=== PATIENT | male | born 1950 | race Caucasian/White ===

== ENCOUNTER 2017-08-14 17:02 | Emergency (ER) | payer OTHER ==
[~2017-08-14] VITALS: Ht 180.3 cm; Wt 65.0 kg
[~2017-08-14 17:02] MED LIST: ALBU17IN INH; AMLO5TAB2 PO; LISI-538 PO; OMEP40CA2 PO; PROP80CA PO
[2017-08-14] MEDS ORDERED: LORA0.5T11 (17:14)
[2017-08-14] MEDS ORDERED: POTA1TAB23 (17:14)
[2017-08-14] MEDS ORDERED: METO1TAB32 (17:14)
[2017-08-14] MEDS ORDERED: BREO1INH (17:14)
[2017-08-14] MEDS ORDERED: methylPREDNISolone INJ 125 MG/2 ML VIAL (J2930) IV ONE (18:30)
[2017-08-14] MEDS ORDERED: diphenhydrAMINE INJ 50MG/ML VIAL (J1200) IV ONE (18:30)
[2017-08-14] MEDS ORDERED: PRED20TA PO (19:18)
[2017-08-14 19:28] VITALS: BP 137/71
== END 2017-08-14 19:27 | disposition home or self-care (01) ==
LOC: M ED 17:02
DX: T78.3XXA Angioneurotic edema, initial encounter (principal); I10 Essential (primary) hypertension; J45.909 Unspecified asthma, uncomplicated; F17.210 Nicotine dependence, cigarettes, uncomplicated; Z79.899 Other long term (current) drug therapy
CPT/HCPCS: 96374; 96375; 99283; J1200; J2930

== ENCOUNTER 2018-07-27 12:24 | Emergency (ER) | payer OTHER ==
[2018-07-27] MEDS: MORPHINE 4 MG/ML 1ML VIAL/SYRINGE (J2270) IV (13:14)
[2018-07-27] MEDS: LORazepam 2 MG/ML VIAL (J2060) IV (13:17)
[2018-07-27 13:54] LABS: ANION GAP 8 MEQ/L (8-16); BLOOD UREA NITROGEN 16 MG/DL (7-18); CALCIUM LEVEL 8.8 MG/DL (8.8-10.2); CARBON DIOXIDE LEVEL 27 MEQ/L (21-32); CHLORIDE LEVEL 104 MEQ/L (98-107); CREATININE FOR GFR 0.76 MG/DL (0.70-1.30); GLOMERULAR FILTRATION RATE > 60.0 (>49); GLUCOSE, FASTING 102 MG/DL (70-100); POTASSIUM SERUM 3.5 MEQ/L (3.5-5.1); SODIUM LEVEL 139 MEQ/L (136-145)
== END 2018-07-27 14:13 | disposition home or self-care (01) ==
LOC: M ED 12:24
DX: M62.830 Muscle spasm of back (principal); J44.9 Chronic obstructive pulmonary disease, unspecified; K21.9 Gastro-esophageal reflux disease without esophagitis; Z79.899 Other long term (current) drug therapy; Z88.8 Allergy status to other drugs, medicaments and biological substances; F17.210 Nicotine dependence, cigarettes, uncomplicated
CPT/HCPCS: J2270

== ENCOUNTER 2019-02-13 12:17 | Emergency (ER) | payer OTHER, MEDICARE ==
[~2019-02-13] VITALS: Ht 177.8 cm; Wt 64.8 kg
[~2019-02-13 12:17] MED LIST changes: -AMLO5TAB2 PO; +AMLO5TAB6 PO; +BREO1INH; +CYCL10TA PO; +LORA0.5T11; +METO1TAB32; +POTA1TAB23; +PRED20TA PO
[2019-02-13] MEDS ORDERED: BREO1INH PO (12:24)
[2019-02-13] MEDS ORDERED: LEVA1TAB2 PO (13:25)
[2019-02-13] MEDS ORDERED: NAPR-837 PO (13:25)
--- NOTE | 2019-02-13 13:32 | REP ---
CHEST, TWO VIEWS: Two views of the chest are performed and compared to a prior study of 03/19/2014. There is infiltrate/atelectasis in the right middle lobe. Chronic pleural and parenchymal fibrotic changes seen in the left lung base. There is mild biapical pleural thickening. Heart is normal in size. There is calcification of the thoracic aorta. The mediastinal silhouette is unchanged. There are mild degenerative changes of the spine. Minor anterior compression deformity is noted of T12. This is of indeterminate age. Electronically Signed by Bc Steinberg MD 02/17/2019 09:45 A
[2019-02-13 13:38] VITALS: BP 172/83
== END 2019-02-13 13:39 | disposition home or self-care (01) ==
LOC: M ED 12:17
DX: J18.1 Lobar pneumonia, unspecified organism (principal); I10 Essential (primary) hypertension; K21.9 Gastro-esophageal reflux disease without esophagitis; Z79.899 Other long term (current) drug therapy; Z88.8 Allergy status to other drugs, medicaments and biological substances

== ENCOUNTER → 2019-02-28 | Outpatient (CLI) | payer OTHER, MEDICARE ==
[~2019-02-28] MED LIST changes: +BREO1INH PO; +LEVA1TAB2 PO; +NAPR-837 PO
--- NOTE | 2019-02-28 15:37 | REP ---
PA and lateral chest: Comparison is 02/13/2018. There is a persisting right middle lobe infiltrate, unchanged. The lateral aspect of the left hemidiaphragm is elevated. This is unchanged. This may be from pleural adhesion. Electronically Signed by Bc Richmond MD 02/28/2019 03:29 P
== END ==
LOC: M WUC 15:16
PROVIDERS: ATTEND Internal Medicine
DX: J18.9 Pneumonia, unspecified organism (principal)

== ENCOUNTER → 2019-03-20 | Outpatient (CLI) | payer OTHER, MEDICARE ==
[~2019-03-20] MED LIST changes: -LORA0.5T11; +LORA0.5T5; -METO1TAB32; +METO1TAB32 PO; -OMEP40CA2 PO; +OMEP40CA97 PO; +PROAAER10 INH; +TREL1AER PO
--- NOTE | 2019-03-21 06:50 | REP ---
Chest x-ray: Two views. History: Pneumonia. Comparison chest x-ray: February 28, 2019. Findings: There is chronic elevation of the left hemidiaphragm and pleuroparenchymal fibrosis at the lateral pleural angle. This is unchanged from prior films dating back to 2014. However, recent radiographs have shown increased density overlying the heart on the lateral film consistent with right middle lobe or lingular atelectasis. This persists today and it is felt to merit further evaluation. Recommend chest CT study. There is mild wedging of one of the lower thoracic vertebrae which is new since 2014 but unchanged from most recent prior studies. No new infiltrate is seen. Lungs overall are hyperinflated. Heart is not enlarged. The aorta is calcific and tortuous. Impression: Persistent consolidation overlying the heart on the lateral film consistent with right middle lobe or lingular atelectasis and/or infiltrate. Recommend chest CT study. With IV contrast if possible. Electronically Signed by Abiodun Wong MD 03/21/2019 11:42 A
== END ==
LOC: M WUC 13:38
PROVIDERS: ATTEND Internal Medicine
DX: J98.11 Atelectasis (principal)

== ENCOUNTER → 2019-04-01 | Outpatient (CLI) | payer OTHER, MEDICARE ==
[~2019-04-01] MED LIST changes: +ISOVUE-370 76% 100ML VIAL (Q9967) As Ordered ONE; +LORA0.5T11; -LORA0.5T5; +OMEP40CA2 PO; -OMEP40CA97 PO
--- NOTE | 2019-04-01 10:04 | REP ---
CT of the chest with IV contrast: Comparisons are PA and lateral plain film study dated 02/13/2019 and 03/20/2019. There is partial collapse of the right middle lobe. The appearance is unchanged from the comparison plain film studies suggesting this is subacute. Consideration might be given to bronchoscopy to evaluate for bronchial occlusion. The remainder the lung leonardo are clear and unchanged. There are no pleural effusions. There is no mediastinal, hilar or axillary lymph node enlargement. Cardiac size is normal. There is no pericardial effusion. The thoracic aorta is unremarkable. The visualized upper abdominal contents are unremarkable. Impression: Partial collapse of the right middle lobe. This is similar appearance to the comparison plain film studies. Bronchoscopy might be considered to evaluate for bronchial occlusion. Electronically Signed by Bc Richmond MD 04/01/2019 09:55 A
== END ==
LOC: M RAD 09:12
PROVIDERS: ATTEND Internal Medicine
DX: J98.19 Other pulmonary collapse (principal)
CPT/HCPCS: 71260; Q9967

== ENCOUNTER → 2019-05-08 | Outpatient (CLI) | payer OTHER, MEDICARE ==
[~2019-05-08] MED LIST changes: -ISOVUE-370 76% 100ML VIAL (Q9967) As Ordered ONE; -OMEP40CA2 PO; +OMEP40CA97 PO
[2019-05-08 17:02] LABS: ALBUMIN 3.9 GM/DL (3.2-5.2); ALT/SGPT 43 U/L (12-78); BILIRUBIN,TOTAL 0.9 MG/DL (0.2-1.0); BLOOD UREA NITROGEN 16 MG/DL (7-18); CALCIUM LEVEL 9.2 MG/DL (8.8-10.2); CARBON DIOXIDE LEVEL 29 MEQ/L (21-32); CHLORIDE LEVEL 102 MEQ/L (98-107); CREATININE FOR GFR 0.93 MG/DL (0.70-1.30); GLOMERULAR FILTRATION RATE > 60.0 (>49); GLUCOSE, FASTING 178 MG/DL (70-100); POTASSIUM SERUM 3.7 MEQ/L (3.5-5.1); SODIUM LEVEL 141 MEQ/L (136-145); TOTAL PROTEIN 7.3 GM/DL (6.4-8.2)
[2019-05-08 17:31] LABS: BASO # 0.1 10^3/uL (0.0-0.2); BASO % 0.9 % (0.0-1.0); EOS # 0.1 10^3/uL (0.0-0.50); EOS % 2.1 % (0.0-3.0); HEMATOCRIT 38.9 % (42.0-52.0); LYMPH % 15.1 % (24.0-44.0); MEAN CORPUSCULAR HEMOGLOBIN 25.6 pg (27.0-33.0); MEAN CORPUSCULAR HGB CONC 33.4 g/dl (32.0-36.5); MEAN CORPUSCULAR VOLUME 76.6 fl (80.0-96.0); MONO # 0.7 10^3/uL (0.0-0.8); MONO % 10.9 % (0.0-5.0); NEUTROPHILS # 4.7 10^3/uL (1.8-7.7); NEUTROPHILS % 70.6 % (36.0-66.0); PLATELET COUNT, AUTOMATED 185 10^3/uL (150-450); RED BLOOD COUNT 5.08 10^6/uL (4.30-6.10); WHITE BLOOD COUNT 6.7 10^3/uL (4.0-10.0)
[2019-05-08 17:55] LABS: INR 1.08; PROTHROMBIN TIME 13.7 SECONDS (11.8-14.0)
== END ==
LOC: M WUC 11:56
PROVIDERS: ATTEND Internal Medicine Pulmonary Disease
DX: J44.9 Chronic obstructive pulmonary disease, unspecified (principal)

== ENCOUNTER 2019-05-13 07:08 | Day surgery (SDC) | payer OTHER, MEDICARE ==
[~2019-05-13] VITALS: Ht 175.3 cm; Wt 65.8 kg
[~2019-05-13 07:08] MED LIST changes: +LIDOCAINE 1% MDV 20ML VIAL SQ PRN; +LR 1,000 ML IV ONE; +OMEP40CA2 PO; -OMEP40CA97 PO
[2019-05-13] MEDS ORDERED: CETACAINE SPRAY 5GM As Ordered ONE (07:11)
[2019-05-13] MEDS ORDERED: THROMBIN SOLN 5,000 UNITS VIAL As Ordered ONE (07:11)
[2019-05-13] MEDS ORDERED: LIDOCAINE VISCOUS 2% SOLN 15ML UDC As Ordered ONE (07:11)
[2019-05-13] MEDS ORDERED: LIDOCAINE 1% SDV INJ 30 ML VIAL As Ordered ONE (07:11)
[2019-05-13] MEDS ORDERED: EPINEPHrine 1MG/10ML SYRINGE 1.5IN As Ordered ONE (07:11)
[2019-05-13] MEDS ORDERED: ROCURONIUM BROMIDE 50 MG/5 ML VIAL As Ordered ONE (07:15)
[2019-05-13] MEDS ORDERED: LIDOCAINE 2% INJ 100 MG/5 ML SDV (FOR ANES.) As Ordered ONE ×2 (07:15→07:16)
[2019-05-13] MEDS ORDERED: PROPOFOL 200 MG/20 ML VIAL As Ordered ONE (07:15)
[2019-05-13] MEDS ORDERED: SUGAMMADEX SODIUM 500 MG/5 ML VIAL (BRIDION) As Ordered ONE (07:16)
[2019-05-13] MEDS ORDERED: dexameTHASONE 4 MG/ML 1ML VIAL (J1100) As Ordered ONE (07:16)
[2019-05-13] MEDS ORDERED: MIDAZOLAM INJ 2 MG/2 ML VIAL (J2250) As Ordered ONE (07:16)
[2019-05-13] MEDS ORDERED: ONDANSETRON 4MG/2ML VIAL (J2405) As Ordered ONE (07:16)
[2019-05-13] MEDS ORDERED: fentaNYL 100 MCG/2 ML INJECTION (J3010) As Ordered ONE (07:16)
[2019-05-13] MEDS ORDERED: ACETAMINOPHEN 1000MG 100ML IV BTL (OFIRMEV) (J0131 PER 10MG) As Ordered ONE (07:16)
[2019-05-13] MEDS ORDERED: ALBUTEROL SULFATE 2.5 MG/0.5 ML INH NEB SOLN INH ONE (08:00)
[2019-05-13] MEDS ORDERED: ALBUTEROL SULFATE 2.5 MG/0.5 ML INH NEB SOLN As Ordered ONE (08:09)
[2019-05-13] MEDS ORDERED: ONDANSETRON 4MG/2ML VIAL (J2405) IV PRN (10:45)
[2019-05-13] MEDS ORDERED: fentaNYL 100 MCG/2 ML INJECTION (J3010) IV PRN (10:45)
[2019-05-13] MEDS ORDERED: PERCOCET 5MG/325MG TAB PO PRN (10:45)
[2019-05-13] MEDS ORDERED: LR 1,000 ML IV SCH (10:45)
[2019-05-13 11:00] VITALS: BP 119/56
--- NOTE | 2019-05-13 11:01 | REP ---
PORTABLE CHEST: AP portable view of the chest is performed and compared to a prior study of 03/20/2019. There is persistent consolidative opacity in the right middle lobe not significantly changed. There is no pneumothorax. There is chronic pleural and parenchymal scarring in the left base, which is unchanged. There is mild biapical pleural and parenchymal scarring. The heart is not enlarged. There is mild calcification of the thoracic aorta. Mediastinal silhouette is unchanged. IMPRESSION: Persistent right middle lobe consolidation. No pneumothorax. Electronically Signed by Bc Steinberg MD 05/13/2019 03:33 P
[2019-05-13 11:55] LABS: APPEARANCE CLOTTED (CLEAR); SOURCE RIGHT MIDDLE LOBE
[2019-05-13 12:04] LABS: MONOCYTES/MACROPHAGES, BAL 1 %
[2019-05-13 12:06] LABS: SOURCE RIGHT LOWER LOBE
[2019-05-13 12:07] LABS: APPEARANCE CLOTTED (CLEAR); COLOR PINK (COLORLESS)
[2019-05-13 12:35] LABS: MONOCYTES/MACROPHAGES, BAL 10 %
--- NOTE | 2019-05-13 13:43 | ROOR ---
Patient Name: Edinson Elizabeth Procedure Date: 05/13/2019 7:16 AM Date of : 1950 Admit Type: Outpatient Age: 69 Note Status: Finalized Attending MD: Jemima Ortiz MD Procedure: Bronchoscopy Indications: Atelectasis of the right middle lobe, Abnormal CT scan of chest Providers: Jemima Ortiz MD (Doctor) Referring MD: 1. No Referring Physician 1. No Referring Physician, Admin. (Referring MD) Requesting Physician: Medicines: General Anesthesia, Cetacaine topical Complications: No immediate complications. Estimated blood loss: Minimal Procedure: Pre-Anesthesia Assessment: - Prior to the procedure, a History and Physical was performed, and patient medications and allergies were reviewed. The patient's tolerance of previous anesthesia was also reviewed. The risks and benefits of the procedure and the sedation options and risks were discussed with the patient. All questions were answered, and informed consent was obtained. Prior Anticoagulants: The patient has taken no previous anticoagulant or antiplatelet agents. ASA Grade Assessment: II - A patient with mild systemic disease. After reviewing the risks and benefits, the patient was deemed in satisfactory condition to undergo the procedure. The Bronchoscope was introduced through the mouth, via the endotracheal tube (the patient was intubated for the procedure) and advanced to the tracheobronchial tree of both lungs. The procedure was accomplished without difficulty. The patient tolerated the procedure well. Findings: The visualized portion of the trachea is of normal caliber. The pradeep is sharp. The tracheobronchial tree was examined to at least the first subsegmental level. Bronchial anatomy was normal; there are no endobronchial lesions. Bronchial mucosa with scattered anthracotic pigmentation and some pitting and webbing. Right Lung Abnormalities: Mucus, plugging the airway, was found in the right middle lobe. The mucus was stephenson/brown, tenacious and thick. The underlying mucosa is friable. BAL was performed in the RML medial segment (B5) of the lung and sent for cell count, bacterial culture, viral smears & culture, and fungal & AFB analysis and cytology. The return was cloudy and mucoid. Mucous plugs were present in the return fluid. In the right lower lobe there were thick white/yellow mucous secretions. BAL was performed in the RLL anterior basal segment (B8) of the lung and sent for cell count, bacterial culture, viral smears & culture, and fungal & AFB analysis. The return was blood-tinged, cloudy and mucoid. Mucous plugs were present in the return fluid. In left lung there were scant white mucoid secretions. Impression: - Atelectasis of the right middle lobe - Abnormal CT scan of chest - A mucous plug was found in the right middle lobe. - Bronchoalveolar lavage was performed. - Bronchoalveolar lavage was performed. Recommendation: - Follow up with bronchoscopist as previously scheduled. Attending Participation: I personally performed the entire procedure. Jemima Ortiz MD 05/13/2019 1:43:14 PM Number of Addenda: 0 Note Initiated On: 05/13/2019 7:16 AM
== END 2019-05-13 11:13 | disposition home or self-care (01) ==
LOC: M SDC 07:08
PROVIDERS: ATTEND Internal Medicine Pulmonary Disease
DX: J98.11 Atelectasis (principal); J44.9 Chronic obstructive pulmonary disease, unspecified; I10 Essential (primary) hypertension; K76.0 Fatty (change of) liver, not elsewhere classified; F17.218 Nicotine dependence, cigarettes, with other nicotine-induced disorders; Z79.899 Other long term (current) drug therapy
CPT/HCPCS: 31624; 71045; 87070; 87102; 87116; 87205; 87206; 88108; 88313; 89051; J0131; J1100; J2250; J2405; J3010

== ENCOUNTER → 2019-05-28 | Outpatient (CLI) | payer OTHER, MEDICARE ==
[~2019-05-28] MED LIST changes: -LIDOCAINE 1% MDV 20ML VIAL SQ PRN; -LR 1,000 ML IV ONE
--- NOTE | 2019-05-28 09:45 | REP ---
CT of the chest without IV contrast: Comparison is 04/01/2019. On the comparison study. There is partial collapse of the right middle lobe. On the study today. This has resolved and is no longer present. The lung leonardo otherwise unchanged. There is no mediastinal or axillary adenopathy as previously. The study is insensitive for hilar adenopathy in the absence of IV contrast. Thoracic aorta is unremarkable except for occasional calcified atheroma. This is unchanged. The cardiac size is normal. There is upper abdomen there is a small hypodensity posteriorly in the hepatic right lobe, unchanged, likely a cyst. The visualized upper abdominal contents are otherwise unremarkable. Impression: The partial collapse of the right middle lobe has resolved and is no longer present. There is no other interval change. Electronically Signed by Bc Richmond MD 05/28/2019 09:37 A
== END ==
LOC: M RAD 09:15
PROVIDERS: ATTEND Internal Medicine Pulmonary Disease
DX: J98.11 Atelectasis (principal)

== ENCOUNTER 2019-10-09 11:53 | Emergency (ER) | payer OTHER, MEDICARE ==
[~2019-10-09 11:53] MED LIST changes: -LORA0.5T11; +LORA0.5T5; -OMEP40CA2 PO; +OMEP40CA97 PO
[2019-10-09] MEDS ORDERED: BREO1INH INH (12:15)
[2019-10-09 12:37] LABS: BASO # 0.1 10^3/uL (0.0-0.2); BASO % 1.4 % (0.0-1.0); EOS # 0.2 10^3/uL (0.0-0.5); EOS % 3.5 % (0.0-3.0); HEMATOCRIT 36.9 % (42.0-52.0); HEMOGLOBIN 12.3 g/dl (13.5-17.5); LYMPH % 17.5 % (24.0-44.0); MEAN CORPUSCULAR HEMOGLOBIN 24.8 pg (27.0-33.0); MEAN CORPUSCULAR HGB CONC 33.3 g/dl (32.0-36.5); MEAN CORPUSCULAR VOLUME 74.5 fl (80.0-96.0); MONO # 0.7 10^3/uL (0.0-0.8); MONO % 12.8 % (0.0-5.0); NEUTROPHILS # 3.7 10^3/uL (1.5-8.5); NEUTROPHILS % 64.1 % (36.0-66.0); PLATELET COUNT, AUTOMATED 156 10^3/uL (150-450); RED BLOOD COUNT 4.95 10^6/uL (4.30-6.10); WHITE BLOOD COUNT 5.7 10^3/uL (4.0-10.0)
[2019-10-09] MEDS ORDERED: MECLIZINE 25 MG TABLET PO ONE (13:15)
--- NOTE | 2019-10-09 13:32 | ECGEPIP ---
[facility] - ED Test Date: 2019-10-09 Pat Name: NARESH GARCIA Department: Room: - Gender: Male Accountant Cost: RITO : 1950 Requested By: EDUARDO Smith Order Number: [id number] Reading MD: Marisol Lockwood Measurements Intervals [place] Rate: 70 P: 71 PA: 186 QRS: 6 QRSD: 93 T: 72 QT: 425 QTc: 461 Interpretive Statements SINUS RHYTHM WITH OCCASIONAL VENTRICULAR PREMATURE COMPLEXES NSTTW abnormalities DELAYED R PROGRESSION NO PRIOR Electronically Signed on 10-09-2019 13:32:24 EST by Marisol Lockwood
--- NOTE | 2019-10-09 13:44 | REPVR ---
PROCEDURE INFORMATION: Exam: CT Head Without Contrast Exam date and time: 10/09/2019 1:11 PM Age: 69 years old Clinical indication: Dizziness; Additional info: Dizzy TECHNIQUE: Imaging protocol: Computed tomography of the head without contrast. Radiation optimization: All CT scans at this facility use at least one of these dose optimization techniques: automated exposure control; mA and/or kV adjustment per patient size (includes targeted exams where dose is matched to clinical indication); or iterative reconstruction. COMPARISON: No relevant prior studies available. FINDINGS: Brain: There is no acute intracranial hemorrhage, cerebral edema, or midline shift. Minimal chronic microvascular ischemic changes are seen in the periventricular white matter. Age-related cerebral and cerebellar volume loss is present. Ventricles: No hydrocephalus. Bones/joints: No acute fracture. Sinuses: There is no acute sinusitis. Mastoid air cells: The mastoid air cells are clear. Orbits: The included orbital structures are unremarkable. Soft tissues: Unremarkable. Vasculature: Atherosclerotic calcifications are seen involving the cavernous carotid arteries. IMPRESSION: No acute intracranial abnormality. Electronically signed by: Tom Lu On 10/09/2019 13:45:26 PM
[2019-10-09 14:07] LABS: CK-MB VALUE MASS 1.5 NG/ML (<3.6); CPK CREATINE PHOSPHOKINASE 51 U/L (39-308); MAGNESIUM LEVEL 1.4 MG/DL (1.8-2.4); MB/CK RELATIVE INDEX 2.94 (< OR =4); TROPONIN I < 0.02 NG/ML (< 0.10)
[2019-10-09] MEDS ORDERED: MECL1TAB31 PO (14:28)
[2019-10-09 14:36] VITALS: BP 145/72
--- NOTE | 2019-10-09 15:04 | REP ---
CHEST, SINGLE VIEW: Single view of the chest is performed and compared to prior study of 05/13/2019. There is no acute infiltrate. There is mild elevation of the left hemidiaphragm. There is mild bibasilar fibrotic scarring which is stable. Heart is normal in size and there is calcification of the thoracic aorta. The mediastinal silhouette is unchanged. IMPRESSION: Stable chronic findings without evidence of acute infiltrate or pulmonary edema. Electronically Signed by Bc Steinberg MD 10/09/2019 03:40 P
== END 2019-10-09 14:52 | disposition home or self-care (01) ==
LOC: EDBD 11:53 → EDSEX 11:53 → M ED 11:53
DX: R42 Dizziness and giddiness (principal); H83.09 Labyrinthitis, unspecified ear; I10 Essential (primary) hypertension; J44.9 Chronic obstructive pulmonary disease, unspecified; Z79.899 Other long term (current) drug therapy; Z88.8 Allergy status to other drugs, medicaments and biological substances; F17.210 Nicotine dependence, cigarettes, uncomplicated

== ENCOUNTER → 2020-05-30 | Outpatient (CLI) | payer OTHER, MEDICARE ==
[~2020-05-30] MED LIST changes: +AMLO1TAB24 PO; -AMLO5TAB6 PO; +BREO1INH INH; +CYCL-707 PO; -CYCL10TA PO; +MECL1TAB31 PO
--- NOTE | 2020-06-09 07:42 | REP ---
CT CHEST WITHOUT CONTRAST: LOW DOSE SCREENING EXAM HISTORY: Nicotine dependency. COMPARISON: Chest CT study 05/28/2019 and 04/01/2019. There is also a comparison chest CT study from 04/06/2008. CT FINDINGS: There is a subtle area of ground glass opacity in the left upper lobe projecting on page 32 of 116 in series 201 of todays study. This measures approximately 12 mm in greatest diameter. It is unchanged from the 04/01/2019 prior study. This may be an area of scarring. It was not present on the 2007 study. There is no evidence of pulmonary mass lesion. No endobronchial lesion is seen. The right middle lobe collapse which was seen on the 04/01/2019 study is not apparent. The left hemidiaphragm is slightly elevated, and there is some pleuroparenchymal scarring at the left base laterally. These findings are unchanged. There is some old mild deformity along the inferior costal margin and left lateral ribcage. There is left and right coronary artery vascular calcification. No new or solid pulmonary nodule is appreciated. IMPRESSION: Lung-RADS category 2 findings. No change from comparison study 05/28/2019. Repeat screening study suggested in one year. Stable 11 mm ground glass opacity left upper lobe. MTDD
== END ==
LOC: M RAD 13:46
PROVIDERS: ATTEND Internal Medicine Pulmonary Disease
DX: R91.8 Other nonspecific abnormal finding of lung field (principal); F17.218 Nicotine dependence, cigarettes, with other nicotine-induced disorders

== ENCOUNTER → 2021-05-30 | Outpatient (CLI) | payer MEDICARE, OTHER ==
[~2021-05-30] MED LIST changes: -LISI-538 PO; +LISI20TA33 PO; +OMEP40CA4 PO; -OMEP40CA97 PO
--- NOTE | 2021-05-30 08:50 | REP ---
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 COMPARISON: 02/17/2008. TECHNIQUE: Real-time sonographic evaluation of ABDOMEN PERFORMED, WITH DUPLEX DOPPLER EVALUATION OF PORTAL VASCULATURE. FINDINGS: The gallbladder demonstrates no evidence of intraluminal sludge or calculi, wall thickening or pericholecystic fluid. There is no intrahepatic or extrahepatic biliary dilatation, common bile duct measures 4 mm in maximum diameter. The liver demonstrates diffuse heterogeneous increased echotexture compatible with diffuse fibrofatty infiltration. The pancreas demonstrates homogeneous echotexture with no gross mass, the pancreas is not optimally visualized due to overlying bowel gas.. Spleen is normal in size with no intrinsic abnormality, measuring 10.1 cm in length. There is no evidence of hydronephrosis, cyst, mass, or calculus in either kidney. The right kidney measures 10.8 x 5.9 x 4.5 cm. Left renal dimensions are 11.7 x 5.8 x 5.7 cm. The abdominal aorta is normal in caliber with no aneurysm. Maximum AP diameter proximally 3.3 cm, mid aspect 2.1 cm, distally 1.7 cm. No free fluid is seen. The main portal vein measures 14 mm in diameter. The splenic vein and portal veins demonstrate normal direction of flow, with normal flow velocities and waveforms. There is no portal vein thrombosis. Hepatic veins are patent with no thrombus. Patent main hepatic artery demonstrates peak systolic velocity of 115.3 centimeters/second. Portal veins demonstrate normal velocity, main portal vein velocity 24.2 centimeter/second. There is loss of phasicity in the hepatic veins. IMPRESSION: Diffuse fibrofatty infiltration of the liver with no gross mass. Portal vasculature demonstrates normal direction of flow with no thrombosis. No evidence of hepatic vein thrombosis. Main portal vein upper limits of normal in diameter with normal velocity. <Electronically signed by Bc Steinberg > 05/30/21 [id number]
== END ==
LOC: M RAD 07:40
PROVIDERS: ATTEND Internal Medicine Gastroenterology
DX: K70.30 Alcoholic cirrhosis of liver without ascites (principal)

== ENCOUNTER → 2021-06-02 | Outpatient (CLI) | payer OTHER, MEDICARE ==
--- NOTE | 2021-06-02 14:53 | REP ---
INDICATION: NICOTINE DEPENDENCE. COMPARISON: 05/30/2020 as well as other prior exams. TECHNIQUE: Low dose screening CT chest performed without the use of intravenous contrast. FINDINGS: Lungs: There is scattered stable appearing bilateral interstitial fibrosis and areas of pleural thickening. There is a new ill-defined partially consolidative opacity in the anteromedial left lower lobe on images 70 through 78. Maximum dimensions are 1.0 x 2.6 cm. This most likely represents a small area of new atelectasis or infiltrate. Otherwise no new parenchymal mass is seen. Heart: Not enlarged. Thoracic aorta: No aneurysm. Visualized osseous structures: There are degenerative changes of the spine. IMPRESSION: Lung rads category 3, probably benign. New band of ill-defined partially consolidative opacity in the anteromedial left lower lobe as discussed above. This most likely represents a new area of atelectasis or infiltrate. Recommend follow-up CT in 3-6 months. <Electronically signed by Bc Steinberg > 06/02/21 [id number]
== END ==
LOC: M RAD 14:08
PROVIDERS: ATTEND Internal Medicine Pulmonary Disease
DX: F17.218 Nicotine dependence, cigarettes, with other nicotine-induced disorders (principal)

== ENCOUNTER → 2021-10-06 | Outpatient (CLI) | payer OTHER, MEDICARE ==
[~2021-10-06] MED LIST changes: +NALT50TA4 PO; +POTA1TAB14 PO
== END ==
LOC: M LABSMTC 11:10
PROVIDERS: ATTEND Anesthesiology
DX: Z01.812 Encounter for preprocedural laboratory examination (principal); Z20.822 Contact with and (suspected) exposure to COVID-19

== ENCOUNTER → 2021-10-06 | Outpatient (CLI) | payer OTHER, MEDICARE ==
[2021-10-06 14:11] LABS: BASO # 0.1 10^3/uL (0.0-0.2); BASO % 1.1 % (0.0-1.0); EOS # 0.1 10^3/uL (0.0-0.5); EOS % 1.2 % (0.0-3.0); HEMOGLOBIN 13.2 g/dl (13.5-17.5); LYMPH # 1.1 10^3/uL (1.5-5.0); LYMPH % 13.5 % (24.0-44.0); MEAN CORPUSCULAR HEMOGLOBIN 25.9 pg (27.0-33.0); MEAN CORPUSCULAR HGB CONC 33.8 g/dl (32.0-36.5); MEAN CORPUSCULAR VOLUME 76.6 fl (80.0-96.0); MONO % 12.1 % (2.0-8.0); NEUTROPHILS # 5.9 10^3/uL (1.5-8.5); NEUTROPHILS % 71.1 % (36.0-66.0); PLATELET COUNT, AUTOMATED 232 10^3/uL (150-450); RED BLOOD COUNT 5.09 10^6/uL (4.30-6.10); WHITE BLOOD COUNT 8.4 10^3/uL (4.0-10.0)
[2021-10-06 14:23] LABS: INR 1.04
[2021-10-06 14:24] LABS: PARTIAL THROMBOPLASTIN TIME 44.7 SECONDS (25.9-37.0)
[2021-10-06 14:34] LABS: ALBUMIN 3.8 GM/DL (3.2-5.2); ALT/SGPT 30 U/L (12-78); BILIRUBIN,TOTAL 1.4 MG/DL (0.2-1.0); BLOOD UREA NITROGEN 9 MG/DL (7-18); CALCIUM LEVEL 9.8 MG/DL (8.8-10.2); CARBON DIOXIDE LEVEL 29 MEQ/L (21-32); CHLORIDE LEVEL 102 MEQ/L (98-107); CREATININE FOR GFR 0.64 MG/DL (0.70-1.30); GLOMERULAR FILTRATION RATE > 60.0 (>42); GLUCOSE, FASTING 89 MG/DL (70-100); POTASSIUM SERUM 3.4 MEQ/L (3.5-5.1); SODIUM LEVEL 141 MEQ/L (136-145); TOTAL PROTEIN 7.8 GM/DL (6.4-8.2)
== END ==
LOC: M PLALAB 11:47
PROVIDERS: ATTEND Internal Medicine Pulmonary Disease
DX: K70.9 Alcoholic liver disease, unspecified (principal)

== ENCOUNTER 2021-10-11 07:33 | Day surgery (SDC) | payer MEDICARE, OTHER ==
[~2021-10-11] VITALS: Ht 177.8 cm; Wt 62.1 kg
[~2021-10-11 07:33] MED LIST changes: +ALBUTEROL SULFATE 2.5 MG/0.5 ML INH NEB SOLN INH ONE; +LIDOCAINE 2% 100MG/5ML SDV (FOR ANES.) As Ordered ONE; +LIDOCAINE 4% INJ 5ML AMP INH ONE; +LR 1,000 ML IV ONE; +MIDAZOLAM INJ 2MG/2ML VIAL (J2250 PER 1MG) As Ordered ONE; +ROCURONIUM BROMIDE 50 MG/5 ML VIAL As Ordered ONE; +fentaNYL 100 MCG/2 ML INJECTION As Ordered ONE; +propofoL 200 MG/20 ML VIAL As Ordered ONE
[2021-10-11] MEDS ORDERED: EPINEPHrine 1MG/ML INJ 30ML MD-VIAL As Ordered ONE (09:13)
[2021-10-11] MEDS ORDERED: CETACAINE SPRAY 5GM As Ordered ONE (09:13)
[2021-10-11] MEDS ORDERED: EPINEPHrine 1MG/10ML SYRINGE 1.5IN As Ordered ONE (09:16)
[2021-10-11] MEDS ORDERED: dexameTHASONE 4 MG/ML 1ML VIAL (J1100 PER 1MG) As Ordered ONE (10:06)
[2021-10-11] MEDS ORDERED: SUGAMMADEX SODIUM 500 MG/5 ML VIAL (BRIDION) As Ordered ONE (10:06)
[2021-10-11] MEDS ORDERED: ONDANSETRON 4MG/2ML VIAL As Ordered ONE (10:06)
[2021-10-11] MEDS ORDERED: KETOROLAC 60MG 2ML VIAL As Ordered ONE (10:06)
[2021-10-11] MEDS ORDERED: ONDANSETRON 4MG/2ML VIAL IV PRN (10:50)
[2021-10-11] MEDS ORDERED: HYDROMORPHONE HCL 0.5 MG/ 0.5 ML SYRINGE (J1170 PER 1) IV PRN (10:50)
[2021-10-11] MEDS ORDERED: LR 1,000 ML IV SCH (10:50)
[2021-10-11] MEDS ORDERED: fentaNYL 100 MCG/2 ML INJECTION IV PRN (10:50)
[2021-10-11] MEDS ORDERED: oxyCODONE 5MG TAB PO PRN (10:50)
[2021-10-11 11:50] VITALS: BP 119/66
== END 2021-10-11 11:57 | disposition home or self-care (01) ==
LOC: M SDC 07:33
PROVIDERS: ATTEND Internal Medicine Pulmonary Disease
DX: R91.8 Other nonspecific abnormal finding of lung field (principal); I10 Essential (primary) hypertension; K76.0 Fatty (change of) liver, not elsewhere classified; M12.9 Arthropathy, unspecified; H44.9 Unspecified disorder of globe; F17.210 Nicotine dependence, cigarettes, uncomplicated; Z79.899 Other long term (current) drug therapy; Z88.8 Allergy status to other drugs, medicaments and biological substances
CPT/HCPCS: 31624; 31627; 31654; 71045; 87070; 87102; 87116; 87205; 87206; 88108; 88305; 88313; J1100; J1885; J2250; J2405; J3010

== ENCOUNTER → 2022-06-11 | Outpatient (CLI) | payer OTHER, MEDICARE ==
[~2022-06-11] MED LIST changes: -ALBUTEROL SULFATE 2.5 MG/0.5 ML INH NEB SOLN INH ONE; -LIDOCAINE 2% 100MG/5ML SDV (FOR ANES.) As Ordered ONE; -LIDOCAINE 4% INJ 5ML AMP INH ONE; -LR 1,000 ML IV ONE; -MIDAZOLAM INJ 2MG/2ML VIAL (J2250 PER 1MG) As Ordered ONE; -ROCURONIUM BROMIDE 50 MG/5 ML VIAL As Ordered ONE; -fentaNYL 100 MCG/2 ML INJECTION As Ordered ONE; -propofoL 200 MG/20 ML VIAL As Ordered ONE
== END ==
LOC: M RAD 15:31
PROVIDERS: ATTEND Internal Medicine Pulmonary Disease
DX: R91.8 Other nonspecific abnormal finding of lung field (principal)

== ENCOUNTER 2022-09-18 16:02 | Emergency (ER) | payer MEDICARE, OTHER ==
[~2022-09-18] VITALS: Ht 188 cm; Wt 90.9 kg
[~2022-09-18 16:02] MED LIST changes: -ALBU2.5V10 INH; -ALBU8.5H INH; -AMLO1TAB25 PO; -FOLI1TAB11 PO; -LEVO1TAB39 PO; -METO1TAB7 PO; -OMEP1CAP73 PO; -PRED50TA PO
[2022-09-18 16:08] VITALS: BP 120/90
[2022-09-18] MEDS ORDERED: NS 500 ML IV ONE (20:10)
[2022-09-18 20:38] LABS: BASO # 0.2 10^3/uL (0.0-0.2); BASO % 1.4 % (0.0-1.0); EOS # 1.3 10^3/uL (0.0-0.5); EOS % 10.9 % (0.0-3.0); HEMATOCRIT 33.3 % (42.0-52.0); HEMOGLOBIN 11.2 g/dl (13.5-17.5); LYMPH # 1.1 10^3/uL (1.5-5.0); LYMPH % 9.6 % (24.0-44.0); MEAN CORPUSCULAR HEMOGLOBIN 25.5 pg (27.0-33.0); MEAN CORPUSCULAR HGB CONC 33.6 g/dl (32.0-36.5); MEAN CORPUSCULAR VOLUME 75.9 fl (80.0-96.0); MONO # 1.1 10^3/uL (0.0-0.8); MONO % 9.4 % (2.0-8.0); NEUTROPHILS # 7.8 10^3/uL (1.5-8.5); NEUTROPHILS % 67.7 % (36.0-66.0); PLATELET COUNT, AUTOMATED 261 10^3/uL (150-450); RED BLOOD COUNT 4.39 10^6/uL (4.30-6.10); WHITE BLOOD COUNT 11.5 10^3/uL (4.0-10.0)
[2022-09-18] MEDS ORDERED: ISOVUE-370 76% 100ML VIAL As Ordered ONE (20:45)
[2022-09-18 20:50] LABS: PARTIAL THROMBOPLASTIN TIME 43.1 SECONDS (24.8-34.2)
[2022-09-18 20:53] LABS: INR 1.08; PROTHROMBIN TIME 14.2 SECONDS (12.5-14.5)
[2022-09-18 20:54] LABS: LIPASE 23 U/L (12-53)
[2022-09-18 20:56] LABS: BILIRUBIN,DIRECT 0.4 MG/DL (<0.4)
[2022-09-18 20:57] LABS: ALKALINE PHOSPHATASE 93 U/L (46-116); ALT/SGPT 17 U/L (7.0-40); AST/SGOT 23 U/L (<34); BILIRUBIN,TOTAL 0.9 MG/DL (0.3-1.2); TOTAL PROTEIN 6.6 G/DL (5.7-8.2)
[2022-09-18 21:02] LABS: RSV AMPLIFICATION NEGATIVE (NEGATIVE)
[2022-09-18 21:10] LABS: CK-MB VALUE MASS < 1.0 NG/ML (<3.6)
[2022-09-18 21:12] LABS: CPK CREATINE PHOSPHOKINASE 25 U/L (46-171)
[2022-09-21] MEDS ORDERED: ALBU2.5V10 INH (10:00)
[2022-10-04] MEDS ORDERED: FOLI1TAB11 PO (15:44)
[2022-10-29] MEDS ORDERED: LEVO1TAB39 PO (15:45)
[2022-10-29] MEDS ORDERED: PRED50TA PO (15:47)
== END 2022-09-19 01:05 | disposition home or self-care (01) ==
LOC: M ED 18:42
DX: R91.8 Other nonspecific abnormal finding of lung field (principal); R04.2 Hemoptysis; M25.78 Osteophyte, vertebrae; J44.9 Chronic obstructive pulmonary disease, unspecified; J45.909 Unspecified asthma, uncomplicated; I10 Essential (primary) hypertension; E78.5 Hyperlipidemia, unspecified; E87.6 Hypokalemia; K76.0 Fatty (change of) liver, not elsewhere classified; D64.9 Anemia, unspecified; Z88.8 Allergy status to other drugs, medicaments and biological substances; Z79.899 Other long term (current) drug therapy; Z87.891 Personal history of nicotine dependence; Z79.51 Long term (current) use of inhaled steroids
CPT/HCPCS: 36415; 71275; 80047; 80076; 82550; 82553; 83605; 83690; 84484; 85025; 85610; 85730; 86850; 86900; 86901; 87040; 87070; 87205; 87631; 87880; 88160; 93005; 99284; Q9967

== ENCOUNTER → 2022-09-18 | Outpatient (REF) | payer MEDICARE, OTHER ==
[~2022-09-18] MED LIST changes: +ALBU2.5V10 INH; +ALBU8.5H INH; +AMLO1TAB25 PO; +FOLI1TAB11 PO; +LEVO1TAB39 PO; +METO1TAB7 PO; +OMEP1CAP73 PO; +PRED50TA PO; +TREL1AER INH; -TREL1AER PO
== END ==
LOC: M LAB REF 17:25
PROVIDERS: ATTEND Internal Medicine Pulmonary Disease
DX: J44.9 Chronic obstructive pulmonary disease, unspecified (principal)

== ENCOUNTER → 2022-09-22 | Outpatient (CLI) | payer MEDICARE, OTHER ==
[~2022-09-22] MED LIST changes: +ALBU2.5V10 INH; +ALBU8.5H INH; +AMLO1TAB25 PO; +FOLI1TAB11 PO; +LEVO1TAB39 PO; +METO1TAB7 PO; +OMEP1CAP73 PO; +PRED50TA PO
[2022-09-22 15:19] LABS: BLOOD UREA NITROGEN 10 MG/DL (9-23); CREATININE FOR GFR 0.64 MG/DL (0.70-1.30); GLOMERULAR FILTRATION RATE > 60.0 (>42)
== END ==
LOC: M LAB 14:02
PROVIDERS: ATTEND Internal Medicine Pulmonary Disease
DX: J44.9 Chronic obstructive pulmonary disease, unspecified (principal)

== ENCOUNTER → 2022-09-23 | Outpatient (CLI) | payer MEDICARE, OTHER | LOC: M LABSMTC 09:11 | PROVIDERS: ATTEND Anesthesiology | DX: Z01.818 Encounter for other preprocedural examination (principal); Z11.52 Encounter for screening for COVID-19 ==

== ENCOUNTER 2022-09-26 09:28 | Day surgery (SDC) | payer MEDICARE, OTHER ==
[~2022-09-26] VITALS: Ht 177.8 cm; Wt 61.7 kg
[~2022-09-26 09:28] MED LIST changes: -ALBU8.5H INH; +ALBUTEROL SULFATE 2.5MG/0.5ML INH NEB SOLN INH ONE; -AMLO1TAB25 PO; +CETACAINE SPRAY 5GM As Ordered ONE; -FOLI1TAB11 PO; -LEVO1TAB39 PO; +LIDOCAINE PRES-FREE 2% 10ML AMP INH ONE; -METO1TAB7 PO; -OMEP1CAP73 PO; -PRED50TA PO
[2022-09-26] MEDS ORDERED: LR 1,000 ML IV SCH ×2 (09:55→13:10)
[2022-09-26] MEDS ORDERED: propofoL 200 MG/20 ML VIAL As Ordered ONE (10:11)
[2022-09-26] MEDS ORDERED: MIDAZOLAM INJ 2MG/2ML VIAL As Ordered ONE (10:12)
[2022-09-26] MEDS ORDERED: LIDOCAINE 2% 100MG/5ML SDV (FOR ANES.) As Ordered ONE (10:12)
[2022-09-26] MEDS ORDERED: ONDANSETRON 4MG 2ML VIAL As Ordered ONE (10:12)
[2022-09-26] MEDS ORDERED: fentaNYL 100 MCG/2 ML INJECTION As Ordered ONE (10:12)
[2022-09-26] MEDS ORDERED: ROCURONIUM BROMIDE 50MG/5ML VIAL As Ordered ONE ×2 (10:12→12:37)
[2022-09-26] MEDS ORDERED: EPINEPHrine 1MG/10ML SYRINGE 1.5IN As Ordered ONE (11:26)
[2022-09-26] MEDS ORDERED: ACETAMINOPHEN 1000MG 100ML IV BAG As Ordered ONE (12:04)
[2022-09-26] MEDS ORDERED: SUGAMMADEX SODIUM 500 MG/5 ML VIAL (BRIDION) As Ordered ONE (12:15)
[2022-09-26] MEDS ORDERED: ePHEDrine SULFATE 25 MG/5 ML(5MG/ML) SYRINGE As Ordered ONE (12:25)
[2022-09-26] MEDS ORDERED: fentaNYL 100 MCG/2 ML INJECTION IV PRN (13:10)
[2022-09-26] MEDS ORDERED: oxyCODONE 5MG TAB PO PRN (13:10)
[2022-09-26] MEDS ORDERED: ONDANSETRON 4MG 2ML VIAL IV PRN (13:10)
[2022-09-26 14:40] VITALS: BP 110/57
[2022-10-04] MEDS ORDERED: FOLI1TAB11 PO (15:44)
[2022-10-29] MEDS ORDERED: LEVO1TAB39 PO (15:45)
[2022-10-29] MEDS ORDERED: PRED50TA PO (15:47)
== END 2022-09-26 14:45 | disposition home or self-care (01) ==
LOC: M SDC 09:28
PROVIDERS: ATTEND Internal Medicine Pulmonary Disease
DX: C34.32 Malignant neoplasm of lower lobe, left bronchus or lung (principal); I10 Essential (primary) hypertension; K76.0 Fatty (change of) liver, not elsewhere classified; K21.9 Gastro-esophageal reflux disease without esophagitis; J44.9 Chronic obstructive pulmonary disease, unspecified; M19.90 Unspecified osteoarthritis, unspecified site; Z88.8 Allergy status to other drugs, medicaments and biological substances; Z79.899 Other long term (current) drug therapy; Z79.51 Long term (current) use of inhaled steroids
CPT/HCPCS: 31623; 31624; 31627; 31628; 31629; 31654; 71045; 76000; 88104; 88108; 88173; 88305; 88313; J0131; J0171; J1100; J2250; J2405; J3010; S2900

== ENCOUNTER → 2022-10-04 | Outpatient (CLI) | payer MEDICARE, OTHER ==
[~2022-10-04] MED LIST changes: -ALBUTEROL SULFATE 2.5MG/0.5ML INH NEB SOLN INH ONE; -CETACAINE SPRAY 5GM As Ordered ONE; +FOLI1TAB11 PO; -LIDOCAINE PRES-FREE 2% 10ML AMP INH ONE; -TREL1AER INH; +TREL1AER PO
== END ==
LOC: M ONCR 14:22
PROVIDERS: ATTEND General Practice
DX: C34.32 Malignant neoplasm of lower lobe, left bronchus or lung (principal); F17.218 Nicotine dependence, cigarettes, with other nicotine-induced disorders; I10 Essential (primary) hypertension; J44.9 Chronic obstructive pulmonary disease, unspecified; K21.9 Gastro-esophageal reflux disease without esophagitis; M19.90 Unspecified osteoarthritis, unspecified site; Z72.89 Other problems related to lifestyle; Z79.51 Long term (current) use of inhaled steroids; Z79.899 Other long term (current) drug therapy; Z80.3 Family history of malignant neoplasm of breast; Z88.8 Allergy status to other drugs, medicaments and biological substances; Z90.2 Acquired absence of lung [part of]
CPT/HCPCS: 99406; G0463

== ENCOUNTER → 2022-10-11 | Outpatient (CLI) | payer MEDICARE, OTHER | LOC: M CARPUL 09:54 | PROVIDERS: ATTEND Internal Medicine Pulmonary Disease | DX: C34.30 Malignant neoplasm of lower lobe, unspecified bronchus or lung (principal) ==

== ENCOUNTER → 2022-10-25 | Outpatient (CLI) | payer OTHER, MEDICARE ==
[~2022-10-25] MED LIST changes: +PROHANCE 279.3MG/ML 15ML VIAL As Ordered ONE
== END ==
LOC: M RAD 13:01
PROVIDERS: ATTEND General Practice
DX: C34.90 Malignant neoplasm of unspecified part of unspecified bronchus or lung (principal)

== ENCOUNTER 2022-11-05 09:58 | Inpatient (IN) | payer MEDICARE, OTHER ==
[~2022-11-05] VITALS: Ht 177.8 cm; Wt 60.7 kg
[2022-11-05] VITALS (14 sets, daily range): BP systolic 82–98; BP diastolic 51–57; O2SAT 84–88
[~2022-11-05 09:58] MED LIST changes: +LEVO1TAB39 PO; +PRED50TA PO; -PROHANCE 279.3MG/ML 15ML VIAL As Ordered ONE; +TREL1AER INH; -TREL1AER PO
[2022-11-05] MEDS ORDERED: ALBU8.5H INH (10:19)
[2022-11-05] MEDS: IPRATROPIUM 0.5MG/ALBUTEROL 2.5MG INH SOL UD 3ML (DUONEB) NEB SCH ×2 (11:11→11:12)
[2022-11-05 11:26] LABS: HEMATOCRIT 26.2 % (42.0-52.0); HEMOGLOBIN 8.9 g/dl (13.5-17.5); MEAN CORPUSCULAR HEMOGLOBIN 25.1 pg (27.0-33.0); MEAN CORPUSCULAR VOLUME 73.8 fl (80.0-96.0); PLATELET COUNT, AUTOMATED 316 10^3/uL (150-450); RED BLOOD COUNT 3.55 10^6/uL (4.30-6.10)
[2022-11-05 11:31] LABS: WHITE BLOOD COUNT 34.9 10^3/uL (4.0-10.0)
[2022-11-05] MEDS ORDERED: ONDANSETRON 4MG 2ML VIAL IV ONE (11:40)
[2022-11-05] MEDS: fentaNYL 100 MCG/2 ML INJECTION IV PRN ×2 (11:45→12:14)
[2022-11-05 11:50] LABS: BLOOD UREA NITROGEN 22 MG/DL (9-23); CALCIUM LEVEL 8.1 MG/DL (8.3-10.6); CARBON DIOXIDE LEVEL 27 MMOL/L (20-31); CHLORIDE LEVEL 99 MMOL/L (98-107); CREATININE FOR GFR 0.55 MG/DL (0.70-1.30); GLOMERULAR FILTRATION RATE > 60.0 (>42); GLUCOSE, FASTING 107 MG/DL (74-106); POTASSIUM SERUM 3.8 MMOL/L (3.5-5.1); SODIUM LEVEL 134 MMOL/L (136-145)
[2022-11-05 11:56] LABS: ANISOCYTOSIS 1+; EOSINOPHILS 5 % (0-3); LYMPHOCYTES 5 % (16-44); MICROCYTOSIS 1+; MONOCYTES 8 % (0-5); NEUTROPHILS 80 % (28-66); PLATELET ESTIMATE NORMAL (NORMAL)
[2022-11-05 11:57] LABS: HYPOCHROMASIA 1+
[2022-11-05] MEDS ORDERED: FUROSEMIDE 40MG/4ML VIAL IV ONE (12:45)
[2022-11-05] MEDS ORDERED: PERCOCET 5MG/325MG TAB PO ONE (15:40)
[2022-11-05] MEDS ORDERED: AZITHROMYCIN INJ 500 MG, VIAL MATE ADAPTER 1 EACH in D5W 250 ML IV ONE (15:40)
[2022-11-05] MEDS ORDERED: cefTRIAXone SOD 2 GM in D5W MINI-BAG PLUS 50 ML IV ONE (15:40)
[2022-11-05] MEDS ORDERED: MOM 30ML SUSPENSION UDC PO PRN (16:25)
[2022-11-05] MEDS ORDERED: ISOVUE-370 76% 100ML VIAL As Ordered ONE ×2 (16:36→17:11)
[2022-11-05] MEDS ORDERED: FOLIC ACID 1 MG in NS 50 ML IV SCH (17:00)
[2022-11-05] MEDS ORDERED: LORazepam 2 MG TAB PO PRN (17:00)
[2022-11-05] MEDS ORDERED: PRED50TA PO (17:26)
[2022-11-05] MEDS ORDERED: METO1TAB7 PO (17:26)
[2022-11-05] MEDS ORDERED: AMLO1TAB25 PO (17:26)
[2022-11-05] MEDS ORDERED: OMEP1CAP73 PO (17:26)
[2022-11-05 17:28] LABS: ABG BASE EXCESS 3.9 (-2.0-2.0); ABG O2 SATURATION 85.1 % (95.0-99.0); ABG PARTIAL PRESSURE CO2 35.3 mmHg (35.0-45.0); ABG STANDARD HCO3 27.7 MEQ/L (22.0-26.0); ABG TOTAL CO2 28.1 MEQ/L (23.0-31.0); ABG pH (ARTERIAL) 7.502 UNITS (7.350-7.450)
[2022-11-05] MEDS ORDERED: HOME MED LIST COMPLETE! XX SCH (17:30)
[2022-11-05 17:31] LABS: ABG PARTIAL PRESSURE O2 49.3 mmHg (75.0-100.0)
[2022-11-05] MEDS: MORPHINE 4 MG/ML 1ML VIAL IV PRN (17:40)
[2022-11-05 17:48] LABS: INR 1.12; PROTHROMBIN TIME 14.6 SECONDS (12.5-14.5)
[2022-11-05] MEDS ORDERED: NALT50TA4 PO (17:48)
[2022-11-05 17:59] LABS: ALBUMIN 2.2 G/DL (3.2-5.2); BILIRUBIN,DIRECT 0.4 MG/DL (<0.4); BILIRUBIN,TOTAL 0.8 MG/DL (0.3-1.2); TOTAL PROTEIN 5.5 G/DL (5.7-8.2)
[2022-11-05] MEDS: GABAPENTIN 100 MG CAP PO SCH (18:00)
[2022-11-05] MEDS: MULTIVITAMINS/MINERALS THERAP 1 TAB PO SCH (18:00)
[2022-11-05] MEDS: THIAMINE 100 MG TAB PO SCH (18:00)
[2022-11-05] MEDS: FOLIC ACID 1MG TAB PO SCH (18:00)
[2022-11-05] MEDS ORDERED: KETOROLAC 30 MG/ML 1ML VIAL IV ONE (18:35)
[2022-11-05] MEDS ORDERED: NS 1,000 ML IV ONE ×2 (18:35→20:10)
[2022-11-05] MEDS: NICOTINE 21MG/24HR 1 EA TRANSDERMAL TD SCH (18:51)
[2022-11-05] MEDS: LIDOCAINE 5% (LIDODERM) PATCH TD SCH (19:57)
[2022-11-05] MEDS: DOCUSATE SODIUM 100MG CAPSULE PO SCH (20:10)
[2022-11-05] MEDS: IPRATROPIUM 0.5MG/ALBUTEROL 2.5MG INH SOL UD 3ML (DUONEB) INH SCH ×2 (20:12→23:20)
[2022-11-05] MEDS: ADVAIR HFA 115/21MCG INHALER INH SCH (20:13)
[2022-11-05] MEDS ORDERED: VANCOMYCIN HCL 1,000 MG, VIAL MATE ADAPTER 1 EACH in NS 250 ML IV ONE (20:30)
[2022-11-05] MEDS: ACETYLCYSTEINE 20% 4 ML VIAL (200MG/ML) INH SCH (20:44)
[2022-11-05] MEDS ORDERED: FLUTICASONE HFA 220 MCG 12 GM INHALER (FLOVENT) INH SCH (21:00)
[2022-11-05] MEDS: MIDODRINE 2.5 MG TAB PO SCH (21:56)
[2022-11-05] MEDS ORDERED: HYDROCORTISONE 100MG/2ML VIAL IV ONE (22:30)
[2022-11-05] MEDS: PIPERACILLIN/TAZOBACTAM SOD 3.375 GM in D5W MINI-BAG PLUS 50 ML IV SCH (22:53)
[2022-11-05] MEDS: MORPHINE 2 MG/ML 1ML VIAL IV PRN (23:10)
[2022-11-05] MEDS: ACETAMINOPHEN 500 MG TAB PO SCH (23:15)
[2022-11-06] VITALS (11 sets, daily range): BP systolic 90–118; BP diastolic 54–68
[2022-11-06] MEDS: ACETYLCYSTEINE 20% 4 ML VIAL (200MG/ML) INH SCH ×4 (02:00→20:16)
[2022-11-06] MEDS: IPRATROPIUM 0.5MG/ALBUTEROL 2.5MG INH SOL UD 3ML (DUONEB) INH SCH ×5 (03:50→20:16)
[2022-11-06] MEDS: PIPERACILLIN/TAZOBACTAM SOD 3.375 GM in D5W MINI-BAG PLUS 50 ML IV SCH ×4 (04:10→21:48)
[2022-11-06 05:51] LABS: BASO # 0.1 10^3/uL (0.0-0.2); BASO % 0.2 % (0.0-1.0); EOS # 1.5 10^3/uL (0.0-0.5); EOS % 4.5 % (0.0-3.0); HEMATOCRIT 25.2 % (42.0-52.0); HEMOGLOBIN 8.4 g/dl (13.5-17.5); LYMPH # 0.7 10^3/uL (1.5-5.0); LYMPH % 2.3 % (24.0-44.0); MEAN CORPUSCULAR HEMOGLOBIN 24.8 pg (27.0-33.0); MEAN CORPUSCULAR HGB CONC 33.3 g/dl (32.0-36.5); MEAN CORPUSCULAR VOLUME 74.3 fl (80.0-96.0); NEUTROPHILS # 28.1 10^3/uL (1.5-8.5); NEUTROPHILS % 85.9 % (36.0-66.0); PLATELET COUNT, AUTOMATED 300 10^3/uL (150-450); RED BLOOD COUNT 3.39 10^6/uL (4.30-6.10)
[2022-11-06 05:52] LABS: WHITE BLOOD COUNT 32.7 10^3/uL (4.0-10.0)
[2022-11-06 05:54] LABS: MONO # 1.6 10^3/uL (0.0-0.8)
[2022-11-06] MEDS: ACETAMINOPHEN 500 MG TAB PO SCH ×3 (06:00→18:39)
[2022-11-06 06:12] LABS: BLOOD UREA NITROGEN 21 MG/DL (9-23); CARBON DIOXIDE LEVEL 26 MMOL/L (20-31); CHLORIDE LEVEL 102 MMOL/L (98-107); CREATININE FOR GFR 0.62 MG/DL (0.70-1.30); GLOMERULAR FILTRATION RATE > 60.0 (>42); GLUCOSE, FASTING 149 MG/DL (74-106); POTASSIUM SERUM 4.1 MMOL/L (3.5-5.1); SODIUM LEVEL 135 MMOL/L (136-145)
[2022-11-06] MEDS: ADVAIR HFA 115/21MCG INHALER INH SCH ×2 (07:47→20:17)
[2022-11-06] MEDS: TIOTROPIUM INHALER/CAPSULE (SPIRIVA) INH SCH (07:47)
[2022-11-06 08:23] LABS: VANCOMYCIN RANDOM 9.9 UG/ML
[2022-11-06] MEDS: MULTIVITAMINS/MINERALS THERAP 1 TAB PO SCH ×2 (09:00→09:12)
[2022-11-06] MEDS: BARICITINIB 2MG TABLET (OLUMIANT) FOR EUA PO SCH (09:00)
[2022-11-06] MEDS: VANCOMYCIN HCL 1,000 MG, VIAL MATE ADAPTER 1 EACH in D5W 250 ML IV SCH ×2 (09:03→21:02)
[2022-11-06] MEDS: MORPHINE 2 MG/ML 1ML VIAL IV PRN ×3 (09:06→21:47)
[2022-11-06] MEDS: NICOTINE 21MG/24HR 1 EA TRANSDERMAL TD SCH (09:10)
[2022-11-06] MEDS: DOCUSATE SODIUM 100MG CAPSULE PO SCH ×2 (09:10→21:47)
[2022-11-06] MEDS: MIDODRINE 2.5 MG TAB PO SCH ×3 (09:11→16:00)
[2022-11-06] MEDS: GABAPENTIN 100 MG CAP PO SCH (09:11)
[2022-11-06] MEDS: FOLIC ACID 1MG TAB PO SCH (09:11)
[2022-11-06] MEDS: THIAMINE 100 MG TAB PO SCH ×2 (09:12→21:47)
[2022-11-06] MEDS: AZITHROMYCIN 250MG TABLET PO SCH (18:39)
[2022-11-06 19:31] LABS: C REACTIVE PROTEIN QUANTITATIV 15.6 MG/DL (<1.0)
[2022-11-06 19:34] LABS: FERRITIN 1005.4 NG/ML (10.5-307.3)
[2022-11-06] MEDS: ENOXAPARIN 40MG/0.4ML SYRINGE (J1650 PER 10MG) SC SCH (21:47)
[2022-11-06] MEDS: LIDOCAINE 5% (LIDODERM) PATCH TD SCH (21:48)
[2022-11-07] VITALS (23 sets, daily range): BP systolic 98–144; BP diastolic 54–78; O2SAT 82–95
[2022-11-07] MEDS ORDERED: REMDESIVIR 200 MG in NS 250 ML IV ONE ×2
[2022-11-07] MEDS: ACETYLCYSTEINE 20% 4 ML VIAL (200MG/ML) INH SCH ×4 (00:49→19:52)
[2022-11-07] MEDS: IPRATROPIUM 0.5MG/ALBUTEROL 2.5MG INH SOL UD 3ML (DUONEB) INH SCH ×7 (00:49→23:33)
[2022-11-07] MEDS: ACETAMINOPHEN 500 MG TAB PO SCH ×5 (01:58→18:09)
[2022-11-07] MEDS: SODIUM CHLORIDE 0.9% INJ 10 ML SYR IV SCH (02:01)
[2022-11-07] MEDS: PIPERACILLIN/TAZOBACTAM SOD 3.375 GM in D5W MINI-BAG PLUS 50 ML IV SCH ×4 (05:57→22:08)
[2022-11-07 07:01] LABS: BASO # 0.1 10^3/uL (0.0-0.2); BASO % 0.2 % (0.0-1.0); EOS # 0.1 10^3/uL (0.0-0.5); EOS % 0.4 % (0.0-3.0); HEMATOCRIT 25.9 % (42.0-52.0); HEMOGLOBIN 8.6 g/dl (13.5-17.5); LYMPH # 0.5 10^3/uL (1.5-5.0); LYMPH % 1.5 % (24.0-44.0); MEAN CORPUSCULAR HEMOGLOBIN 24.8 pg (27.0-33.0); MEAN CORPUSCULAR HGB CONC 33.2 g/dl (32.0-36.5); MEAN CORPUSCULAR VOLUME 74.6 fl (80.0-96.0); MONO % 3.3 % (2.0-8.0); NEUTROPHILS # 28.2 10^3/uL (1.5-8.5); NEUTROPHILS % 92.8 % (36.0-66.0); PLATELET COUNT, AUTOMATED 241 10^3/uL (150-450); RED BLOOD COUNT 3.47 10^6/uL (4.30-6.10)
[2022-11-07 07:13] LABS: WHITE BLOOD COUNT 30.4 10^3/uL (4.0-10.0)
[2022-11-07 07:44] LABS: ALBUMIN 1.8 G/DL (3.2-5.2); ALKALINE PHOSPHATASE 71 U/L (46-116); ALT/SGPT 20 U/L (7.0-40); AST/SGOT 32 U/L (<34); BILIRUBIN,DIRECT 0.6 MG/DL (<0.4); BLOOD UREA NITROGEN 22 MG/DL (9-23); CALCIUM LEVEL 7.6 MG/DL (8.3-10.6); CARBON DIOXIDE LEVEL 27 MMOL/L (20-31); CHLORIDE LEVEL 104 MMOL/L (98-107); CREATININE FOR GFR 0.59 MG/DL (0.70-1.30); GLOMERULAR FILTRATION RATE > 60.0 (>42); GLUCOSE, FASTING 141 MG/DL (74-106); POTASSIUM SERUM 3.9 MMOL/L (3.5-5.1); SODIUM LEVEL 139 MMOL/L (136-145)
[2022-11-07] MEDS: MIDODRINE 2.5 MG TAB PO SCH ×3 (08:36→16:00)
[2022-11-07] MEDS: THIAMINE 100 MG TAB PO SCH ×2 (08:37→20:14)
[2022-11-07] MEDS: FOLIC ACID 1MG TAB PO SCH (08:37)
[2022-11-07] MEDS: GABAPENTIN 100 MG CAP PO SCH ×2 (08:37→20:13)
[2022-11-07] MEDS: DOCUSATE SODIUM 100MG CAPSULE PO SCH ×2 (08:37→20:13)
[2022-11-07] MEDS: BARICITINIB 2MG TABLET (OLUMIANT) FOR EUA PO SCH ×2 (08:37→09:00)
[2022-11-07] MEDS: MULTIVITAMINS/MINERALS THERAP 1 TAB PO SCH ×2 (08:38→08:56)
[2022-11-07] MEDS: ADVAIR HFA 115/21MCG INHALER INH SCH ×2 (08:42→19:52)
[2022-11-07] MEDS: TIOTROPIUM INHALER/CAPSULE (SPIRIVA) INH SCH (08:42)
[2022-11-07] MEDS: NICOTINE 21MG/24HR 1 EA TRANSDERMAL TD SCH (10:48)
[2022-11-07 12:07] LABS: ABG HCO3 22.4 MEQ/L (22.0-26.0); ABG O2 SATURATION 92.4 % (95.0-99.0); ABG PARTIAL PRESSURE CO2 29.2 mmHg (35.0-45.0); ABG STANDARD HCO3 24.4 MEQ/L (22.0-26.0); ABG TOTAL CO2 23.3 MEQ/L (23.0-31.0); ABG pH (ARTERIAL) 7.502 UNITS (7.350-7.450)
[2022-11-07] MEDS: MORPHINE 4 MG/ML 1ML VIAL IV PRN (16:20)
[2022-11-07] MEDS ORDERED: RIVAROXABAN 10MG TAB (XARELTO) PO SCH (18:00)
[2022-11-07] MEDS: AZITHROMYCIN 250MG TABLET PO SCH (18:09)
[2022-11-07] MEDS: MORPHINE 2 MG/ML 1ML VIAL IV PRN (18:09)
[2022-11-07] MEDS: ENOXAPARIN 40MG/0.4ML SYRINGE (J1650 PER 10MG) SC SCH (20:14)
[2022-11-07] MEDS: LIDOCAINE 5% (LIDODERM) PATCH TD SCH (20:14)
[2022-11-07] MEDS ORDERED: RAMELTEON 8 MG TAB (ROZEREM) PO ONE (23:30)
[2022-11-08] VITALS (26 sets, daily range): BP systolic 101–165; BP diastolic 63–95; O2SAT 86–93
[2022-11-08] MEDS: ACETAMINOPHEN 500 MG TAB PO SCH ×4 (00:10→18:13)
[2022-11-08] MEDS: REMDESIVIR 100 MG in NS 250 ML IV SCH (00:37)
[2022-11-08] MEDS: SODIUM CHLORIDE 0.9% INJ 10 ML SYR IV SCH (00:37)
[2022-11-08] MEDS: IPRATROPIUM 0.5MG/ALBUTEROL 2.5MG INH SOL UD 3ML (DUONEB) INH SCH ×2 (03:16→08:23)
[2022-11-08] MEDS: ACETYLCYSTEINE 20% 4 ML VIAL (200MG/ML) INH SCH ×2 (03:16→08:00)
[2022-11-08 04:20] LABS: ABG BASE EXCESS 0.9 (-2.0-2.0); ABG HCO3 23.6 MEQ/L (22.0-26.0); ABG O2 SATURATION 92.9 % (95.0-99.0); ABG PARTIAL PRESSURE CO2 30.7 mmHg (35.0-45.0); ABG PARTIAL PRESSURE O2 67.4 mmHg (75.0-100.0); ABG STANDARD HCO3 25.2 MEQ/L (22.0-26.0); ABG TOTAL CO2 24.6 MEQ/L (23.0-31.0); ABG pH (ARTERIAL) 7.504 UNITS (7.350-7.450)
[2022-11-08] MEDS: PIPERACILLIN/TAZOBACTAM SOD 3.375 GM in D5W MINI-BAG PLUS 50 ML IV SCH ×4 (05:16→22:13)
[2022-11-08 06:40] LABS: BASO # 0.1 10^3/uL (0.0-0.2); BASO % 0.2 % (0.0-1.0); EOS # 0.1 10^3/uL (0.0-0.5); EOS % 0.3 % (0.0-3.0); HEMATOCRIT 27.6 % (42.0-52.0); HEMOGLOBIN 9.3 g/dl (13.5-17.5); LYMPH # 0.5 10^3/uL (1.5-5.0); LYMPH % 1.5 % (24.0-44.0); MEAN CORPUSCULAR HEMOGLOBIN 25.1 pg (27.0-33.0); MEAN CORPUSCULAR HGB CONC 33.7 g/dl (32.0-36.5); MEAN CORPUSCULAR VOLUME 74.6 fl (80.0-96.0); MONO # 0.8 10^3/uL (0.0-0.8); MONO % 2.2 % (2.0-8.0); NEUTROPHILS % 93.6 % (36.0-66.0); PLATELET COUNT, AUTOMATED 252 10^3/uL (150-450)
[2022-11-08 06:44] LABS: WHITE BLOOD COUNT 35.2 10^3/uL (4.0-10.0)
[2022-11-08 06:51] LABS: ERYTHROCYTE SEDIMENTATION RATE 83 mm/hr (0-20)
[2022-11-08 06:54] LABS: INR 1.22; PROTHROMBIN TIME 15.7 SECONDS (12.5-14.5)
[2022-11-08] MEDS: TIOTROPIUM INHALER/CAPSULE (SPIRIVA) INH SCH (08:00)
[2022-11-08] MEDS: ADVAIR HFA 115/21MCG INHALER INH SCH ×2 (08:00→19:12)
[2022-11-08] MEDS: MIDODRINE 2.5 MG TAB PO SCH ×3 (08:00→16:00)
[2022-11-08 08:57] LABS: LDH LACTATE DEHYDROGENASE 374 U/L (120-246)
[2022-11-08] MEDS: MORPHINE 2 MG/ML 1ML VIAL IV PRN (09:04)
[2022-11-08 09:45] LABS: ALBUMIN 1.9 G/DL (3.2-5.2); ALKALINE PHOSPHATASE 85 U/L (46-116); ALT/SGPT 22 U/L (7.0-40); AST/SGOT 27 U/L (<34); BILIRUBIN,DIRECT 0.6 MG/DL (<0.4); BILIRUBIN,TOTAL 1.3 MG/DL (0.3-1.2); BLOOD UREA NITROGEN 29 MG/DL (9-23); CALCIUM LEVEL 7.7 MG/DL (8.3-10.6); CARBON DIOXIDE LEVEL 26 MMOL/L (20-31); CHLORIDE LEVEL 104 MMOL/L (98-107); CREATININE FOR GFR 0.65 MG/DL (0.70-1.30); FERRITIN 1413.3 NG/ML (10.5-307.3); GLOMERULAR FILTRATION RATE > 60.0 (>42); GLUCOSE, FASTING 137 MG/DL (74-106); POTASSIUM SERUM 4.1 MMOL/L (3.5-5.1); SODIUM LEVEL 139 MMOL/L (136-145)
[2022-11-08] MEDS: NICOTINE 21MG/24HR 1 EA TRANSDERMAL TD SCH (10:12)
[2022-11-08] MEDS: THIAMINE 100 MG TAB PO SCH (10:13)
[2022-11-08] MEDS: METOPROLOL TART 25 MG TABLET PO SCH ×2 (10:13→20:22)
[2022-11-08] MEDS: MIRALAX *UNIT DOSE* 17GM PACKET PO SCH ×3 (10:13→20:24)
[2022-11-08] MEDS: GABAPENTIN 100 MG CAP PO SCH ×2 (10:13→20:20)
[2022-11-08] MEDS: FOLIC ACID 1MG TAB PO SCH (10:14)
[2022-11-08] MEDS: MULTIVITAMINS/MINERALS THERAP 1 TAB PO SCH (10:14)
[2022-11-08] MEDS: SENNA 8.6 MG TAB (SENOKOT) PO SCH ×2 (10:14→20:20)
[2022-11-08] MEDS: DOCUSATE SODIUM 100MG CAPSULE PO SCH ×2 (10:15→20:22)
[2022-11-08] MEDS: BARICITINIB 2MG TABLET (OLUMIANT) FOR EUA PO SCH (10:15)
[2022-11-08 10:27] LABS: TOTAL PROTEIN 5.5 G/DL (5.7-8.2)
[2022-11-08] MEDS: SODIUM CHLORIDE HYPERTONIC 3% 15ML NEB SOL INH SCH ×4 (11:16→23:36)
[2022-11-08] MEDS: ALBUTEROL SULFATE 2.5MG/0.5ML INH NEB SOLN NEB SCH ×4 (11:16→23:35)
[2022-11-08] MEDS: MORPHINE 4 MG/ML 1ML VIAL IV PRN ×2 (12:12→15:31)
[2022-11-08] MEDS: AZITHROMYCIN 250MG TABLET PO SCH (18:12)
[2022-11-08] MEDS: ENOXAPARIN 40MG/0.4ML SYRINGE (J1650 PER 10MG) SC SCH (20:20)
[2022-11-08] MEDS: LIDOCAINE 5% (LIDODERM) PATCH TD SCH (20:23)
[2022-11-09] VITALS (21 sets, daily range): BP systolic 97–166; BP diastolic 62–102
[2022-11-09] MEDS: REMDESIVIR 100 MG in NS 250 ML IV SCH ×2
[2022-11-09] MEDS: ACETAMINOPHEN 500 MG TAB PO SCH ×4 (00:05→18:00)
[2022-11-09] MEDS: SODIUM CHLORIDE 0.9% INJ 10 ML SYR IV SCH (00:06)
[2022-11-09] MEDS: PIPERACILLIN/TAZOBACTAM SOD 3.375 GM in D5W MINI-BAG PLUS 50 ML IV SCH ×4 (03:26→21:49)
[2022-11-09] MEDS: ALBUTEROL SULFATE 2.5MG/0.5ML INH NEB SOLN NEB SCH ×6 (04:00→23:19)
[2022-11-09] MEDS: SODIUM CHLORIDE HYPERTONIC 3% 15ML NEB SOL INH SCH ×6 (04:00→23:19)
[2022-11-09 04:56] LABS: BASO # 0.1 10^3/uL (0.0-0.2); BASO % 0.2 % (0.0-1.0); EOS # 0.2 10^3/uL (0.0-0.5); EOS % 0.6 % (0.0-3.0); HEMATOCRIT 25.5 % (42.0-52.0); HEMOGLOBIN 8.2 g/dl (13.5-17.5); LYMPH # 0.6 10^3/uL (1.5-5.0); LYMPH % 2.1 % (24.0-44.0); MEAN CORPUSCULAR HEMOGLOBIN 24.1 pg (27.0-33.0); MEAN CORPUSCULAR HGB CONC 32.2 g/dl (32.0-36.5); MONO # 1.2 10^3/uL (0.0-0.8); MONO % 4.2 % (2.0-8.0); NEUTROPHILS % 91.7 % (36.0-66.0); PLATELET COUNT, AUTOMATED 225 10^3/uL (150-450); WHITE BLOOD COUNT 28.4 10^3/uL (4.0-10.0)
[2022-11-09 05:41] LABS: ALKALINE PHOSPHATASE 88 U/L (46-116); ALT/SGPT 21 U/L (7.0-40); AST/SGOT 30 U/L (<34); BILIRUBIN,DIRECT 0.6 MG/DL (<0.4); BLOOD UREA NITROGEN 48 MG/DL (9-23); CALCIUM LEVEL 7.7 MG/DL (8.3-10.6); CARBON DIOXIDE LEVEL 27 MMOL/L (20-31); CHLORIDE LEVEL 106 MMOL/L (98-107); CREATININE FOR GFR 0.68 MG/DL (0.70-1.30); GLOMERULAR FILTRATION RATE > 60.0 (>42); GLUCOSE, FASTING 132 MG/DL (74-106); POTASSIUM SERUM 4.2 MMOL/L (3.5-5.1); SODIUM LEVEL 140 MMOL/L (136-145); TOTAL PROTEIN 5.2 G/DL (5.7-8.2)
[2022-11-09] MEDS: ADVAIR HFA 115/21MCG INHALER INH SCH ×2 (07:45→19:25)
[2022-11-09] MEDS: TIOTROPIUM INHALER/CAPSULE (SPIRIVA) INH SCH (08:00)
[2022-11-09] MEDS: MIDODRINE 2.5 MG TAB PO SCH (08:00)
[2022-11-09] MEDS ORDERED: FUROSEMIDE 20MG/2ML VIAL IV ONE (09:00)
[2022-11-09] MEDS: MIRALAX *UNIT DOSE* 17GM PACKET PO SCH ×2 (09:00→20:27)
[2022-11-09] MEDS: SENNA 8.6 MG TAB (SENOKOT) PO SCH ×2 (09:00→20:27)
[2022-11-09] MEDS: FOLIC ACID 1MG TAB PO SCH (09:06)
[2022-11-09] MEDS: BARICITINIB 2MG TABLET (OLUMIANT) FOR EUA PO SCH (09:06)
[2022-11-09] MEDS: MULTIVITAMINS/MINERALS THERAP 1 TAB PO SCH (09:06)
[2022-11-09] MEDS: GABAPENTIN 100 MG CAP PO SCH ×2 (09:06→20:26)
[2022-11-09] MEDS: DOCUSATE SODIUM 100MG CAPSULE PO SCH ×2 (09:06→20:27)
[2022-11-09] MEDS: METOPROLOL TART 25 MG TABLET PO SCH ×2 (09:07→20:27)
[2022-11-09] MEDS: NICOTINE 21MG/24HR 1 EA TRANSDERMAL TD SCH (09:08)
[2022-11-09] MEDS: MORPHINE 2 MG/ML 1ML VIAL IV PRN (12:17)
[2022-11-09 15:08] LABS: BODY FLUID CULTURE Not indicated. (.); LEGIONELLA ANTIGEN URINE Negative (Negative); ORGANISM ID Not indicated. (.); SPECIMEN SOURCE Urine (.); URINE STREP PNEUMONIAE ANTIGEN Negative (Negative)
[2022-11-09] MEDS: MORPHINE 4 MG/ML 1ML VIAL IV PRN ×2 (15:28→20:13)
[2022-11-09] MEDS: LIDOCAINE 5% (LIDODERM) PATCH TD SCH (20:26)
[2022-11-09] MEDS: ENOXAPARIN 40MG/0.4ML SYRINGE (J1650 PER 10MG) SC SCH (20:27)
[2022-11-09] MEDS ORDERED: RAMELTEON 8 MG TAB (ROZEREM) PO ONE (21:45)
[2022-11-10] VITALS (24 sets, daily range): BP systolic 114–174; BP diastolic 60–87
[2022-11-10] MEDS: SODIUM CHLORIDE 0.9% INJ 10 ML SYR IV SCH
[2022-11-10] MEDS: ALBUTEROL SULFATE 2.5MG/0.5ML INH NEB SOLN NEB SCH ×5 (03:15→19:47)
[2022-11-10] MEDS: SODIUM CHLORIDE HYPERTONIC 3% 15ML NEB SOL INH SCH ×5 (03:15→19:47)
[2022-11-10] MEDS: PIPERACILLIN/TAZOBACTAM SOD 3.375 GM in D5W MINI-BAG PLUS 50 ML IV SCH (04:08)
[2022-11-10] MEDS: MORPHINE 4 MG/ML 1ML VIAL IV PRN (04:08)
[2022-11-10 05:03] LABS: BASO # 0.1 10^3/uL (0.0-0.2); BASO % 0.2 % (0.0-1.0); EOS # 0.6 10^3/uL (0.0-0.5); EOS % 1.8 % (0.0-3.0); HEMATOCRIT 23.9 % (42.0-52.0); LYMPH # 0.3 10^3/uL (1.5-5.0); LYMPH % 1.1 % (24.0-44.0); MEAN CORPUSCULAR HGB CONC 33.5 g/dl (32.0-36.5); MEAN CORPUSCULAR VOLUME 74.7 fl (80.0-96.0); MONO % 5.4 % (2.0-8.0); NEUTROPHILS % 89.6 % (36.0-66.0); PLATELET COUNT, AUTOMATED 204 10^3/uL (150-450)
[2022-11-10 05:05] LABS: MONO # 1.7 10^3/uL (0.0-0.8); WHITE BLOOD COUNT 31.2 10^3/uL (4.0-10.0)
[2022-11-10] MEDS: ACETAMINOPHEN 500 MG TAB PO SCH ×5 (05:15→23:36)
[2022-11-10 05:39] LABS: ALBUMIN 2.2 G/DL (3.2-5.2); ALKALINE PHOSPHATASE 101 U/L (46-116); ALT/SGPT 24 U/L (7.0-40); AST/SGOT 39 U/L (<34); BILIRUBIN,DIRECT 0.6 MG/DL (<0.4); BILIRUBIN,TOTAL 1.5 MG/DL (0.3-1.2); BLOOD UREA NITROGEN 42 MG/DL (9-23); CALCIUM LEVEL 7.8 MG/DL (8.3-10.6); CARBON DIOXIDE LEVEL 27 MMOL/L (20-31); CHLORIDE LEVEL 104 MMOL/L (98-107); GLOMERULAR FILTRATION RATE > 60.0 (>42); GLUCOSE, FASTING 116 MG/DL (74-106); POTASSIUM SERUM 4.1 MMOL/L (3.5-5.1); SODIUM LEVEL 139 MMOL/L (136-145); TOTAL PROTEIN 5.5 G/DL (5.7-8.2)
[2022-11-10] MEDS: ADVAIR HFA 115/21MCG INHALER INH SCH ×2 (07:54→19:48)
[2022-11-10] MEDS ORDERED: FUROSEMIDE 40MG/4ML VIAL IV ONE (08:25)
[2022-11-10] MEDS: MULTIVITAMINS/MINERALS THERAP 1 TAB PO SCH (08:50)
[2022-11-10] MEDS: FOLIC ACID 1MG TAB PO SCH (08:50)
[2022-11-10] MEDS: BARICITINIB 2MG TABLET (OLUMIANT) FOR EUA PO SCH (08:50)
[2022-11-10] MEDS: METOPROLOL TART 25 MG TABLET PO SCH ×2 (08:51→20:25)
[2022-11-10] MEDS: GABAPENTIN 100 MG CAP PO SCH ×2 (08:51→20:25)
[2022-11-10] MEDS: NICOTINE 21MG/24HR 1 EA TRANSDERMAL TD SCH (08:52)
[2022-11-10] MEDS: MIRALAX *UNIT DOSE* 17GM PACKET PO SCH ×2 (08:54→20:08)
[2022-11-10] MEDS: SENNA 8.6 MG TAB (SENOKOT) PO SCH ×2 (08:54→20:08)
[2022-11-10] MEDS: DOCUSATE SODIUM 100MG CAPSULE PO SCH ×2 (08:56→20:08)
[2022-11-10] MEDS: MORPHINE 2 MG/ML 1ML VIAL IV PRN ×4 (10:04→23:38)
[2022-11-10] MEDS: ENOXAPARIN 40MG/0.4ML SYRINGE (J1650 PER 10MG) SC SCH (20:26)
[2022-11-10] MEDS: LIDOCAINE 5% (LIDODERM) PATCH TD SCH (20:26)
[2022-11-11] VITALS (24 sets, daily range): BP systolic 102–141; BP diastolic 61–82
[2022-11-11] MEDS: SODIUM CHLORIDE 0.9% INJ 10 ML SYR IV SCH
[2022-11-11] MEDS: SODIUM CHLORIDE HYPERTONIC 3% 15ML NEB SOL INH SCH ×7 (00:32→23:10)
[2022-11-11] MEDS: ALBUTEROL SULFATE 2.5MG/0.5ML INH NEB SOLN NEB SCH ×7 (00:32→23:10)
[2022-11-11] MEDS: MORPHINE 2 MG/ML 1ML VIAL IV PRN ×5 (04:20→21:42)
[2022-11-11 04:31] LABS: BASO # 0.1 10^3/uL (0.0-0.2); BASO % 0.2 % (0.0-1.0); EOS # 1.5 10^3/uL (0.0-0.5); EOS % 5.2 % (0.0-3.0); HEMATOCRIT 24.2 % (42.0-52.0); HEMOGLOBIN 7.8 g/dl (13.5-17.5); LYMPH # 0.6 10^3/uL (1.5-5.0); LYMPH % 1.9 % (24.0-44.0); MEAN CORPUSCULAR HEMOGLOBIN 24.3 pg (27.0-33.0); MEAN CORPUSCULAR HGB CONC 32.2 g/dl (32.0-36.5); MEAN CORPUSCULAR VOLUME 75.4 fl (80.0-96.0); MONO % 7.2 % (2.0-8.0); NEUTROPHILS # 24.8 10^3/uL (1.5-8.5); NEUTROPHILS % 83.3 % (36.0-66.0); PLATELET COUNT, AUTOMATED 182 10^3/uL (150-450); RED BLOOD COUNT 3.21 10^6/uL (4.30-6.10); WHITE BLOOD COUNT 29.7 10^3/uL (4.0-10.0)
[2022-11-11 05:04] LABS: MONO # 2.1 10^3/uL (0.0-0.8)
[2022-11-11 05:13] LABS: ALBUMIN 2.1 G/DL (3.2-5.2); ALKALINE PHOSPHATASE 115 U/L (46-116); ALT/SGPT 33 U/L (7.0-40); AST/SGOT 47 U/L (<34); BILIRUBIN,DIRECT 0.7 MG/DL (<0.4); BILIRUBIN,TOTAL 1.6 MG/DL (0.3-1.2); BLOOD UREA NITROGEN 45 MG/DL (9-23); CALCIUM LEVEL 7.9 MG/DL (8.3-10.6); CARBON DIOXIDE LEVEL 29 MMOL/L (20-31); CHLORIDE LEVEL 105 MMOL/L (98-107); CREATININE FOR GFR 0.61 MG/DL (0.70-1.30); GLOMERULAR FILTRATION RATE > 60.0 (>42); GLUCOSE, FASTING 105 MG/DL (74-106); POTASSIUM SERUM 4.1 MMOL/L (3.5-5.1); SODIUM LEVEL 138 MMOL/L (136-145); TOTAL PROTEIN 5.2 G/DL (5.7-8.2)
[2022-11-11] MEDS: ACETAMINOPHEN 500 MG TAB PO SCH ×4 (05:20→23:01)
[2022-11-11] MEDS: ADVAIR HFA 115/21MCG INHALER INH SCH ×2 (07:59→19:19)
[2022-11-11] MEDS: BARICITINIB 2MG TABLET (OLUMIANT) FOR EUA PO SCH (08:22)
[2022-11-11] MEDS: MULTIVITAMINS/MINERALS THERAP 1 TAB PO SCH (08:22)
[2022-11-11] MEDS: GABAPENTIN 100 MG CAP PO SCH ×2 (08:22→20:37)
[2022-11-11] MEDS: NICOTINE 21MG/24HR 1 EA TRANSDERMAL TD SCH (08:22)
[2022-11-11] MEDS: FOLIC ACID 1MG TAB PO SCH (08:22)
[2022-11-11] MEDS: MIRALAX *UNIT DOSE* 17GM PACKET PO SCH ×2 (08:23→20:37)
[2022-11-11] MEDS: METOPROLOL TART 25 MG TABLET PO SCH ×2 (08:23→20:37)
[2022-11-11] MEDS: DOCUSATE SODIUM 100MG CAPSULE PO SCH ×2 (08:24→20:38)
[2022-11-11] MEDS: SENNA 8.6 MG TAB (SENOKOT) PO SCH ×2 (08:24→20:38)
[2022-11-11] MEDS: LIDOCAINE 5% (LIDODERM) PATCH TD SCH (20:37)
[2022-11-11] MEDS: ENOXAPARIN 40MG/0.4ML SYRINGE (J1650 PER 10MG) SC SCH (20:38)
[2022-11-12] VITALS (24 sets, daily range): BP systolic 105–155; BP diastolic 58–86
[2022-11-12] MEDS: SODIUM CHLORIDE HYPERTONIC 3% 15ML NEB SOL INH SCH ×6 (04:18→23:00)
[2022-11-12] MEDS: ALBUTEROL SULFATE 2.5MG/0.5ML INH NEB SOLN NEB SCH (04:18)
[2022-11-12] MEDS: ACETAMINOPHEN 500 MG TAB PO SCH ×3 (05:36→18:00)
[2022-11-12] MEDS: MORPHINE 4 MG/ML 1ML VIAL IV PRN ×5 (07:45→22:29)
[2022-11-12] MEDS: METOPROLOL TART 25 MG TABLET PO SCH ×3 (08:26→22:30)
[2022-11-12] MEDS: MULTIVITAMINS/MINERALS THERAP 1 TAB PO SCH (08:26)
[2022-11-12] MEDS: GABAPENTIN 100 MG CAP PO SCH ×2 (08:26→21:06)
[2022-11-12] MEDS: FOLIC ACID 1MG TAB PO SCH (08:27)
[2022-11-12 08:34] LABS: HEMATOCRIT 24.8 % (42.0-52.0); HEMOGLOBIN 8.2 g/dl (13.5-17.5); MEAN CORPUSCULAR HGB CONC 33.1 g/dl (32.0-36.5); MEAN CORPUSCULAR VOLUME 75.6 fl (80.0-96.0); PLATELET COUNT, AUTOMATED 212 10^3/uL (150-450); RED BLOOD COUNT 3.28 10^6/uL (4.30-6.10)
[2022-11-12 08:36] LABS: WHITE BLOOD COUNT 31.7 10^3/uL (4.0-10.0)
[2022-11-12] MEDS: BUDESONIDE 0.5 MG/2 ML INHALATION SUSPENSION INH SCH ×2 (08:44→19:39)
[2022-11-12] MEDS: LEVALBUTEROL 1.25MG 0.5ML CONCENTRATE NEB INH SCH ×5 (08:44→23:00)
[2022-11-12] MEDS: SENNA 8.6 MG TAB (SENOKOT) PO SCH ×2 (09:00→21:00)
[2022-11-12] MEDS: NICOTINE 21MG/24HR 1 EA TRANSDERMAL TD SCH (09:36)
[2022-11-12] MEDS: LIDOCAINE 5% (LIDODERM) PATCH TD SCH (21:05)
[2022-11-12] MEDS: ENOXAPARIN 40MG/0.4ML SYRINGE (J1650 PER 10MG) SC SCH (21:06)
[2022-11-13] VITALS (20 sets, daily range): BP systolic 99–155; BP diastolic 56–71
[2022-11-13] MEDS: SODIUM CHLORIDE HYPERTONIC 3% 15ML NEB SOL INH SCH ×6 (03:07→23:33)
[2022-11-13] MEDS: LEVALBUTEROL 1.25MG 0.5ML CONCENTRATE NEB INH SCH ×6 (03:07→23:32)
[2022-11-13] MEDS: MORPHINE 4 MG/ML 1ML VIAL IV PRN ×4 (03:52→15:41)
[2022-11-13 04:38] LABS: HEMATOCRIT 24.5 % (42.0-52.0); HEMOGLOBIN 7.9 g/dl (13.5-17.5); MEAN CORPUSCULAR HEMOGLOBIN 24.5 pg (27.0-33.0); MEAN CORPUSCULAR HGB CONC 32.2 g/dl (32.0-36.5); MEAN CORPUSCULAR VOLUME 76.1 fl (80.0-96.0); PLATELET COUNT, AUTOMATED 212 10^3/uL (150-450); RED BLOOD COUNT 3.22 10^6/uL (4.30-6.10); WHITE BLOOD COUNT 28.8 10^3/uL (4.0-10.0)
[2022-11-13] MEDS: ACETAMINOPHEN 500 MG TAB PO SCH ×5 (06:00→23:34)
[2022-11-13] MEDS: METOPROLOL TART 25 MG TABLET PO SCH ×3 (06:28→21:38)
[2022-11-13] MEDS: BUDESONIDE 0.5 MG/2 ML INHALATION SUSPENSION INH SCH ×2 (07:55→19:45)
[2022-11-13] MEDS: FOLIC ACID 1MG TAB PO SCH (08:45)
[2022-11-13] MEDS: GABAPENTIN 100 MG CAP PO SCH ×2 (08:46→20:26)
[2022-11-13] MEDS: PANTOPRAZOLE 40MG TAB (PROTONIX) PO SCH (08:47)
[2022-11-13] MEDS: MULTIVITAMINS/MINERALS THERAP 1 TAB PO SCH (08:48)
[2022-11-13] MEDS: SENNA 8.6 MG TAB (SENOKOT) PO SCH ×2 (08:48→20:26)
[2022-11-13] MEDS: NICOTINE 21MG/24HR 1 EA TRANSDERMAL TD SCH (08:49)
[2022-11-13] MEDS ORDERED: LORazepam 2 MG/ML 1ML VIAL IV ONE (11:10)
[2022-11-13] MEDS: AMINO AC/ELECTROLYTE/DEX/CALC 1,000 ML IV SCH (12:16)
[2022-11-13] MEDS: CEFEPIME HCL 2 GM in D5W MINI-BAG PLUS 50 ML IV SCH ×2 (12:17→20:29)
[2022-11-13] MEDS ORDERED: FAT EMULSION IV 250 ML IV ONE (18:00)
[2022-11-13] MEDS ORDERED: NALOXONE INJ 0.4MG/1ML VIAL As Ordered ONE (20:16)
[2022-11-13] MEDS ORDERED: NALOXONE INJ 0.4MG/1ML VIAL IV STA ×2 (20:18→20:24)
[2022-11-13] MEDS: LIDOCAINE 5% (LIDODERM) PATCH TD SCH (20:26)
[2022-11-13] MEDS: ENOXAPARIN 40MG/0.4ML SYRINGE (J1650 PER 10MG) SC SCH (20:30)
[2022-11-14] VITALS (9 sets, daily range): BP systolic 91–104; BP diastolic 51–55
[2022-11-14] MEDS: LEVALBUTEROL 1.25MG 0.5ML CONCENTRATE NEB INH SCH ×2 (02:59→08:00)
[2022-11-14] MEDS: SODIUM CHLORIDE HYPERTONIC 3% 15ML NEB SOL INH SCH ×2 (02:59→08:00)
[2022-11-14] MEDS: CEFEPIME HCL 2 GM in D5W MINI-BAG PLUS 50 ML IV SCH (04:02)
[2022-11-14] MEDS: AMINO AC/ELECTROLYTE/DEX/CALC 1,000 ML IV SCH (04:03)
[2022-11-14 04:23] LABS: HEMATOCRIT 24.5 % (42.0-52.0); HEMOGLOBIN 7.2 g/dl (13.5-17.5); MEAN CORPUSCULAR HEMOGLOBIN 24.6 pg (27.0-33.0); MEAN CORPUSCULAR HGB CONC 29.4 g/dl (32.0-36.5); MEAN CORPUSCULAR VOLUME 83.6 fl (80.0-96.0); PLATELET COUNT, AUTOMATED 242 10^3/uL (150-450); RED BLOOD COUNT 2.93 10^6/uL (4.30-6.10)
[2022-11-14 04:28] LABS: WHITE BLOOD COUNT 36.8 10^3/uL (4.0-10.0)
[2022-11-14] MEDS: ACETAMINOPHEN 500 MG TAB PO SCH (05:01)
[2022-11-14] MEDS: METOPROLOL TART 25 MG TABLET PO SCH (05:01)
[2022-11-14 05:05] LABS: CALCIUM LEVEL 8.2 MG/DL (8.3-10.6); CREATININE FOR GFR 1.77 MG/DL (0.70-1.30); GLOMERULAR FILTRATION RATE 40.5 (>42); POTASSIUM SERUM 6.6 MMOL/L (3.5-5.1)
[2022-11-14] MEDS ORDERED: DEXTROSE 50% 50ML SYRINGE IV STA (05:13)
[2022-11-14] MEDS ORDERED: HumuLIN R (REGULAR) INSULIN (NovoLIN R) **100U/ML** PER UNIT IV STA (05:13)
[2022-11-14] MEDS ORDERED: CALCIUM GLUCONATE 1,000 MG in D5W MINI-BAG PLUS 100 ML IV ONE (06:00)
[2022-11-14] MEDS ORDERED: SOD POLYSTYRENE SULFONATE SUSP 15GM 60ML UD PO ONE (06:00)
[2022-11-14] MEDS ORDERED: CEFEPIME HCL 1 GM in D5W MINI-BAG PLUS 50 ML IV SCH (06:20)
[2022-11-14] MEDS ORDERED: LACTATED RINGER'S 1000 ML IV ONE (07:25)
[2022-11-14] MEDS: BUDESONIDE 0.5 MG/2 ML INHALATION SUSPENSION INH SCH (08:00)
[2022-11-14] MEDS: MULTIVITAMINS/MINERALS THERAP 1 TAB PO SCH (08:07)
[2022-11-14] MEDS: FOLIC ACID 1MG TAB PO SCH (08:07)
[2022-11-14] MEDS: NICOTINE 21MG/24HR 1 EA TRANSDERMAL TD SCH (08:07)
[2022-11-14] MEDS: PANTOPRAZOLE 40MG TAB (PROTONIX) PO SCH (08:07)
[2022-11-14] MEDS: SENNA 8.6 MG TAB (SENOKOT) PO SCH (08:07)
[2022-11-14] MEDS: GABAPENTIN 100 MG CAP PO SCH (08:08)
[2022-11-14] MEDS ORDERED: LORazepam 2 MG/ML 1ML VIAL IV PRN (08:45)
[2022-11-14] MEDS ORDERED: MORPHINE 2 MG/ML 1ML VIAL IV PRN (08:45)
[2022-11-14] MEDS ORDERED: CEFEPIME HCL 2 GM in D5W MINI-BAG PLUS 50 ML IV SCH (16:00)
== END 2022-11-14 10:10 | disposition expired | DRG 180 ==
LOC: M ED 09:58 → M ED INP 16:22 → ENRESERV 16:53 → M PCU 17:45 → M ICU 11-08 05:07
PROVIDERS: ADMIT Student in an Organized Health Care Education/Training Program; ATTEND Student in an Organized Health Care Education/Training Program
DX: C34.92 Malignant neoplasm of unspecified part of left bronchus or lung (principal); J96.21 Acute and chronic respiratory failure with hypoxia; J18.9 Pneumonia, unspecified organism; U07.1 COVID-19; J12.82 Pneumonia due to coronavirus disease 2019; J44.0 Chronic obstructive pulmonary disease with (acute) lower respiratory infection; C79.51 Secondary malignant neoplasm of bone; C78.7 Secondary malignant neoplasm of liver and intrahepatic bile duct; E87.20 Acidosis, unspecified; R04.2 Hemoptysis; J90 Pleural effusion, not elsewhere classified; R64 Cachexia; I95.9 Hypotension, unspecified; D50.9 Iron deficiency anemia, unspecified; N19 Unspecified kidney failure; Z66 Do not resuscitate; I10 Essential (primary) hypertension; K21.9 Gastro-esophageal reflux disease without esophagitis; M19.90 Unspecified osteoarthritis, unspecified site; F17.210 Nicotine dependence, cigarettes, uncomplicated; I48.91 Unspecified atrial fibrillation; D64.9 Anemia, unspecified; D72.829 Elevated white blood cell count, unspecified; F10.10 Alcohol abuse, uncomplicated; Z98.41 Cataract extraction status, right eye; Z98.42 Cataract extraction status, left eye; Z79.52 Long term (current) use of systemic steroids; Z79.899 Other long term (current) drug therapy; Z88.8 Allergy status to other drugs, medicaments and biological substances; Z90.2 Acquired absence of lung [part of]

== ENCOUNTER → 2022-11-06 | Outpatient (RCR) | payer MEDICARE, OTHER ==
[~2022-11-06] MED LIST changes: +ALBU8.5H INH; +AMLO1TAB25 PO; +METO1TAB7 PO; +OMEP1CAP73 PO
== END ==
LOC: M ONCR 10-22 13:51
PROVIDERS: ATTEND General Practice
DX: C34.32 Malignant neoplasm of lower lobe, left bronchus or lung (principal)

== ENCOUNTER 2022-11-13 15:45 | Outpatient (RCR) | payer MEDICARE, OTHER | END 2022-11-14 | LOC: M ONCR 15:45 | PROVIDERS: ATTEND General Practice | DX: C34.32 Malignant neoplasm of lower lobe, left bronchus or lung (principal) ==